=== PATIENT | male | born 1935 | race Caucasian/White ===

== ENCOUNTER 2018-11-27 19:54 | Inpatient (IN) ==
--- NOTE | 2018-11-27 19:56 | Emergency Department Note ---
Disposition Clinical Impression: Peripheral edema, Chest pressure, Hypertensive emergency Disposition: Admitted As Inpatient Condition: Fair Referrals: Brien Morel MD [Primary Care Provider] - Forms: ED Satisfaction Letter, Work/School Release Time of Disposition: 21:16 General Adult HPI - General Chief complaint: ED General Medical Stated complaint: high blood pressure Time Seen by Provider: 11/27/18 20:00 Source: patient, family Mode of arrival: wheelchair Limitations: physical limitation, age Nursing Notes Reviewed: Yes Vital Signs Reviewed: Yes - History of Present Illness HPI Narrative: 83-year-old male who presents emergency room visit increasing swelling and edema of legs was seen the other EDT patient though presents today with increasing swelling blurred vision was loss vision. He denies any diarrhea melena hematochezia hematemesis he has dyspnea with activity dyspnea with exertion patient states that he has chest pressure at times he states that he has had no fever no chills no cough patient states that he is unable to ambulate around the house he sleeps in the hospital bed so he does not have any orthopnea. Patient has any additional placed review systems Onset (ago): day(s) Location: lower extremity Pain Severity: mild Pain Scale: 3 Quality: aching Consistency: constant, Worsening Improves with: nothing Worsens with: other (legs dependant) Associated symptoms: Reports: shortness of breath, weakness. Denies: confusion, chest pain, cough, diaphoresis, fever/chills, headaches, loss of appetite, malaise, nausea/vomiting, rash, seizure, syncope Treatments Prior to Arrival: none - Related Data Home Medications Medication Instructions Recorded Confirmed Aspirin [Lo-Dose Aspirin EC] 81 mg PO DAILY 05/03/18 11/27/18 Benazepril HCl 20 mg PO DAILY 05/03/18 11/27/18 Ciclopirox Olamine [Ciclopirox] 1 appl TP BID 05/03/18 11/27/18 Diclofenac Sodium [Voltaren] 1 appl TD DAILY PRN 05/03/18 11/27/18 Fluocinonide 1 appl TP BID 05/03/18 11/27/18 Lovastatin 40 mg PO HS 05/03/18 11/27/18 Multivitamin [One Daily 1 tab PO DAILY 05/03/18 11/27/18 Multivitamin] Pantoprazole Sodium [Protonix] 40 mg PO DAILY 05/03/18 11/27/18 Sucralfate [Carafate] 1 gm PO QIDAC 05/03/18 11/27/18 Tamsulosin [Flomax] 0.4 mg PO DAILY 05/03/18 11/27/18 Allergies Allergy/AdvReac Type Severity Reaction Status Date / Time Penicillins [PCN] Allergy Hives Verified 05/03/18 16:44 Sulfa (Sulfonamide AdvReac Vomiting Verified 05/03/18 16:44 Antibiotics) All systems ED: reviewed and negative except as stated. Review of Systems: As Per HPI Constitutional: Reports: weakness. Denies: fever, chills Eyes: Denies: eye pain, eye discharge ENT ED: Denies: ear pain, dysphagia Cardiovascular: Reports: chest pain (pressre), dyspnea on exertion, edema. Denies: palpitations Respiratory: Denies: cough, dyspnea Gastrointestinal: Denies: abdominal pain, nausea, vomiting Genitourinary: Denies: urgency, dysuria Musculoskeletal: Reports: joint swelling. Denies: back pain, neck pain Integumentary: Denies: rash, abrasion Neurological: Denies: headache Psychiatric: Denies: anxiety, depression Endocrine: Denies: fatigue Hematological/Lymphatic: Denies: easy bleeding Allergic/Immunologic: Denies: facial swelling Past Medical History - Past Medical History Attestation: Yes The following information was validated with the patient. Source: patient, old records reviewed, nursing notes reviewed Medical history: Reports: arthritis, GERD, hyperlipidemia, hypertension, kidney stones, other Surgical history: Reports: cholecystectomy, herniorrhaphy, knee replacement Psychiatric history: Reports: no psych history - Social History Smoking Status: Former smoker Smokeless Tobacco Status: No Alcohol use: Reports: none Drug use: Reports: none Physical Exam - General Limitations: no limitations General appearance: alert, in no apparent distress - Head Head exam: atraumatic, normocephalic, normal inspection - Eye Eye exam: Present: normal appearance, PERRL, EOMI - ENT ENT exam: normal exam, normal oropharynx, mucous membranes moist - Expanded ENT Exam External ear exam: Present: normal external inspection Mouth exam: Present: normal external inspection Teeth exam: Present: normal inspection Throat exam: Present: normal inspection - Neck Neck exam: Present: normal inspection, full ROM, trachea midline - Chest Chest inspection: Present: normal inspection, symmetric chest wall rise - Respiratory Respiratory exam: Present: normal lung sounds bilaterally - Cardiovascular Cardiovascular exam: Present: regular rate, normal rhythm, normal heart sounds - Abdominal Exam Abdominal exam: Present: soft, Non-Tender. Absent: tenderness, distention, guarding, rebound, rigidity - Extremities Exam Extremities exam: Present: normal inspection, full ROM. Absent: tenderness, pedal edema - Expanded Upper Extremity Exam Shoulder exam: Present: normal inspection, full ROM Arm exam: Present: normal inspection, full ROM Elbow exam: Present: normal inspection, full ROM Forearm/Wrist exam: Present: normal inspection, full ROM Hand exam: Present: normal inspection, full ROM Vascular exam: Normal: capillary refill, radial pulse - Expanded Lower Extremity Exam Hip/Pelvis exam: Present: normal inspection, full ROM Upper leg exam: Present: normal inspection, full ROM 1 - selling 3+ Knee exam: Present: normal inspection, full ROM, swelling Lower leg exam: Present: normal inspection, full ROM, swelling Ankle exam: Present: normal inspection, full ROM, swelling Foot/toe exam: Present: normal inspection, full ROM, swelling Neurovascular/Tendon exam: Present: normal capillary refill, normal fine/light touch. Absent: motor deficit, sensory deficit, tendon deficit Gait: observed and normal - Back Exam Back exam: Present: normal inspection, full ROM. Absent: tenderness - Neurological Exam Neurological exam: Present: alert, oriented X3 - Expanded Neurological Exam Patient oriented to: Present: person, place, time Coma Scale Eye Opening: Spontaneous Coma Scale Motor Response: Obeys Commands Coma Scale Verbal Response: Oriented Coma Scale Total: 15 - Psychiatric Psychiatric exam: Present: normal affect, normal mood - Skin Skin exam: Present: warm, dry, intact, normal color Course Course Narrative: he was immediately seen and evaluated examinations performed patient was given an IV saline well and then was given 1 mg of Bumex and also given 0.2 mg Klonopin patient is a pressure patient pressure still changes patient was then given additional Bumex 1 mg as the edema with this being noted that he will be a dmitted for observation overnight patient was transferred to MedSurg stable currently asymptomatic other than the peripheral edema lower extremities complaints no chest pain or pressure at this time Vital Signs Temperature 97.4 F L 11/27/18 19:56 Pulse Rate 54 11/27/18 19:56 Respiratory Rate 16 11/27/18 19:56 Blood Pressure 217/94 11/27/18 19:56 O2 Sat by Pulse Oximetry 92 11/27/18 19:56 Temperature 97.4 F L 11/27/18 20:01 Pulse Rate 59 11/27/18 20:40 Respiratory Rate 18 11/27/18 20:40 Blood Pressure 219/88 11/27/18 20:40 O2 Sat by Pulse Oximetry 92 11/27/18 20:40 Oxygen Delivery Oxygen Delivery Room Air Medical Decision Making - Medical Records Medical records reviewed: Yes I reviewed the patient's medical records. - Lab Data Lab results reviewed: Yes I reviewed the patient's lab results. Result diagrams: 11/27/18 20:24 11/27/18 20:24 Lab Results 11/27/18 11/27/18 11/27/18 Range/Units 20:24 20:24 20:24 WBC 6.2 (4.3-11.1) K/mcL RBC 4.50 (4.19-5.50) M/mcL Hgb 14.8 (12.9-16.9) g/dL Hct 44.8 (37.5-50.1) % MCV 99.6 (83.0-100.0) fL MCH 32.9 (28.0-33.3) pg MCHC 33.0 (31.6-35.5) g/dL RDW 12.7 (11.5-14.5) % Plt Count 154 (140-400) K/mcL MPV 10.5 (9.4-12.4) fL Immature Gran % 0.3 (0-4) % Seg Neutrophils % 68.4 % Lymphocytes % 16.1 % Monocytes % 7.9 % Eosinophils % 6.8 % Basophils % 0.5 % Neutrophils # 4.3 (1.6-8.9) K/mcL Lymphocytes # 1.0 (0.6-4.6) K/mcL Monocytes # 0.5 (0.0-1.3) K/mcL Eosinophils # 0.4 (0.0-0.6) K/mcL Basophils # 0.0 (0.0-0.2) K/mcL PT 11.2 (9.4-12.1) Seconds INR 1.0 APTT 34.9 (26.0-36.0) Seconds Sodium 144 (136-145) mEq/L Potassium 3.6 (3.5-5.1) mEq/L Chloride 103 (98-107) mEq/L Carbon Dioxide 39 H (23-29) mEq/L BUN 13 (8-23) mg/dL Creatinine 1.20 (0.70-1.30) mg/dL Est GFR ( Amer) > 60 (> 60) Est GFR (Non-Af Amer) 58 L (> 60) BUN/Creatinine Ratio 11 (6-26) Glucose 122 H (70-105) mg/dL Calculated Osmolality 299 (280-300) Calcium 10.8 H (8.6-10.3) mg/dL Magnesium 1.1 L (1.6-2.6) mg/dL Total Bilirubin 0.7 (0.3-1.0) mg/dL AST 16 (13-39) Units/L ALT 15 (7-52) Units/L Alkaline Phosphatase 57 (34-104) Units/L Troponin I < 0.03 (< 0.04) ng/mL B-Natriuretic Peptide (Less than 100) pg/mL Serum Total Protein 6.7 (6.4-8.9) g/dL Albumin 3.5 (3.5-5.7) g/dL Globulin 3.2 (2.4-3.5) g/dL Albumin/Globulin Ratio 1.1 (1.1-2.2) 11/27/18 Range/Units 20:24 WBC (4.3-11.1) K/mcL RBC (4.19-5.50) M/mcL Hgb (12.9-16.9) g/dL Hct (37.5-50.1) % MCV (83.0-100.0) fL MCH (28.0-33.3) pg MCHC (31.6-35.5) g/dL RDW (11.5-14.5) % Plt Count (140-400) K/mcL MPV (9.4-12.4) fL Immature Gran % (0-4) % Seg Neutrophils % % Lymphocytes % % Monocytes % % Eosinophils % % Basophils % % Neutrophils # (1.6-8.9) K/mcL Lymphocytes # (0.6-4.6) K/mcL Monocytes # (0.0-1.3) K/mcL Eosinophils # (0.0-0.6) K/mcL Basophils # (0.0-0.2) K/mcL PT (9.4-12.1) Seconds INR APTT (26.0-36.0) Seconds Sodium (136-145) mEq/L Potassium (3.5-5.1) mEq/L Chloride (98-107) mEq/L Carbon Dioxide (23-29) mEq/L BUN (8-23) mg/dL Creatinine (0.70-1.30) mg/dL Est GFR ( Amer) (> 60) Est GFR (Non-Af Amer) (> 60) BUN/Creatinine Ratio (6-26) Glucose (70-105) mg/dL Calculated Osmolality (280-300) Calcium (8.6-10.3) mg/dL Magnesium (1.6-2.6) mg/dL Total Bilirubin (0.3-1.0) mg/dL AST (13-39) Units/L ALT (7-52) Units/L Alkaline Phosphatase (34-104) Units/L Troponin I (< 0.04) ng/mL B-Natriuretic Peptide 38 (Less than 100) pg/mL Serum Total Protein (6.4-8.9) g/dL Albumin (3.5-5.7) g/dL Globulin (2.4-3.5) g/dL Albumin/Globulin Ratio (1.1-2.2) - Radiology Data Radiology results reviewed: Yes I reviewed the patient's radiology results. ITS Impressions Chest X-Ray 11/27/18 20:13 IMPRESSION: No convincing evidence of edema or pneumonia. Rotated exam. D/ / 11/27/2018 20:40:37 Shayan Villa MD / [facility] Interpreting Provider: Shayan Villa MD - EKG Data EKG #1 EKG attestation: Yes I reviewed and interpreted this EKG. EKG results narrative: EKG shows sinus rhythm rate 59 HI 179 QRS 110 QT 431 and axis XXV no ST segment elevation ischemic or injury Critical Care Time Critical Care Time: Yes Total Critical Care Time: 45 Attestation: High probability of clinically significant life-threatening deterioration of this male individual as result of this significant hypertension and is having peripheral edema patient is also compounding the problem because he is bradycardic and is taking flecainide
[2018-11-27] MEDS ORDERED: cloNIDine HCl 0.1 MG TABLET PO STA (20:14)
[2018-11-27] MEDS ORDERED: Bumetanide 1 MG/4 ML VIAL IVP ONE (20:14)
[2018-11-27 20:31] LABS: Basophils % 0.5 %; Eosinophils # 0.4 K/mcL (0.0-0.6); Eosinophils % 6.8 %; Hematocrit 44.8 % (37.5-50.1); Hemoglobin 14.8 g/dL (12.9-16.9); Immature Granulocytes % 0.3 % (0-4); Lymphocytes % 16.1 %; Mean Corpuscular Hemoglobin 32.9 pg (28.0-33.3); Mean Corpuscular Volume 99.6 fL (83.0-100.0); Mean Platelet Volume 10.5 fL (9.4-12.4); Monocytes # 0.5 K/mcL (0.0-1.3); Monocytes % 7.9 %; Neutrophils # 4.3 K/mcL (1.6-8.9); Platelet Count 154 K/mcL (140-400); Red Cell Distribution Width 12.7 % (11.5-14.5); Segmented Neutrophils % 68.4 %; White Blood Count 6.2 K/mcL (4.3-11.1)
[2018-11-27 20:42] LABS: Prothrombin Time 11.2 Seconds (9.4-12.1)
[2018-11-27 20:44] LABS: Activated Partial Thrombo Time 34.9 Seconds (26.0-36.0)
[2018-11-27 20:49] LABS: Alanine Aminotransferase 15 Units/L (7-52); Albumin 3.5 g/dL (3.5-5.7); Albumin/Globulin Ratio 1.1 (1.1-2.2); Alkaline Phosphatase 57 Units/L (34-104); Aspartate Amino Transferase 16 Units/L (13-39); BUN/Creatinine Ratio 11 (6-26); Bilirubin,Total 0.7 mg/dL (0.3-1.0); Blood Urea Nitrogen 13 mg/dL (8-23); Calcium 10.8 mg/dL (8.6-10.3); Carbon Dioxide 39 mEq/L (23-29); Chloride 103 mEq/L (98-107); Globulin 3.2 g/dL (2.4-3.5); Glucose 122 mg/dL (70-105); Magnesium 1.1 mg/dL (1.6-2.6); Osmolality,Calculated 299 (280-300); Potassium 3.6 mEq/L (3.5-5.1); Sodium 144 mEq/L (136-145); Total Protein 6.7 g/dL (6.4-8.9); eGFR For African Americans > 60 (> 60); eGFR For Non-African Americans 58 (> 60)
[2018-11-27 20:53] LABS: Troponin I < 0.03 ng/mL (< 0.04)
[2018-11-27] MEDS ORDERED: Nitroglycerin 1 INCH/GM PACKET TP ONE ×2 (21:13→22:04)
[2018-11-27] MEDS ORDERED: Naloxone 0.4 MG/ML INJ IVP PRN (22:04)
[2018-11-27] MEDS ORDERED: DICLOFENAC SODIUM TP PRN (22:04)
[2018-11-27] MEDS: Sucralfate 1 GM TABLET PO SCH (22:47)
[2018-11-28] MEDS: Lisinopril 20 MG TABLET PO SCH (08:40)
[2018-11-28] MEDS: Multivit/Ca/Min/Fe/FA 1 TAB TABLET PO SCH (08:40)
[2018-11-28] MEDS: Aspirin Enteric Coated 81 MG Tablet PO SCH (08:40)
[2018-11-28] MEDS: Sucralfate 1 GM TABLET PO SCH ×4 (08:40→21:49)
[2018-11-28] MEDS: CICLOPIROX OLAMINE TP SCH ×2 (08:41→21:50)
[2018-11-28] MEDS: FluocinoLONE Acet 0.025% CRM 15 GM TUBE TP SCH ×2 (08:42→21:50)
[2018-11-28] MEDS: Acetaminophen 325 MG TABLET PO PRN ×2 (12:41→18:38)
[2018-11-28] MEDS: Bumetanide 1 MG/4 ML VIAL IVP SCH ×2 (13:29→18:39)
--- NOTE | 2018-11-28 14:20 | Internal Med History&Physical ---
Date of Encounter: 11/28/18 Time of Encounter: 12:10 Assessment and Plan (1) Hypomagnesemia Current visit: Yes Status: Acute Etiology not obvious. Magnesium sulfate will be given and labs rechecked in a.m. (2) CKD (chronic kidney disease) stage 3, GFR 30-59 ml/min Current visit: Yes Status: Chronic Patient was unaware he had chronic kidney disease stage 2-3 present since 2014. He is asymptomatic. (3) Hypertension Current visit: Yes Status: Chronic Continue ACEI. IV Bumex has been ordered. Blood pressure will be monitored. Qualifiers: Hypertension type: essential hypertension Qualified Code(s): I10 - Essential (primary) hypertension (4) BPH (benign prostatic hyperplasia) Current visit: Yes Status: Chronic Continue Flomax. Qualifiers: Lower urinary tract symptom presence: symptoms present Lower urinary tract symptom detail: urinary hesitancy Qualified Code(s): N40.1 - Benign prostatic hyperplasia with lower urinary tract symptoms; R39.11 - Hesitancy of micturition (5) Hypercalcemia Current visit: Yes Status: Chronic Present on all labs since April 2018. PTH will be ordered. (6) Elevated d-dimer Current visit: No Status: Acute Etiology not determined. Venous Doppler study of bilateral lower extremities 11/22/2018 showed no evidence of DVT. Continue to monitor. (7) Peripheral edema Current visit: Yes Status: Acute IV Lasix has been ordered. Internal Medicine - H&P: HPI Chief complaint: Edema, hypertension Admitted From: Emergency Dept Plans for Post Hospital Care: Home History of present illness: Mr. Mendoza is a 83 year old male who came to emergency room stating he had noticeable increase in edema of his lower legs, right more than left, and elevated blood pressure. He reports blood pressure was approximately 189/99 at home. He had no chest pain or mental status changes. He was evaluated in emergency room and admitted to [facility] floor for ongoing care needs. He was seen in emergency room November 21 for leg edema. D-dimer was found to be significantly elevated at 2031. Venous Doppler study the following day showed no evidence of DVT. He reports edema worsened over the past 1-2 days as per above. He denies history of heart failure or past DVT. He has had no change in medication or activity. Cardiovascular history is significant for hypertension but no known AK or pulmonary embolus. Past Med Surg Social Fam HX - Past Medical History Medical history: arthritis, GERD, hyperlipidemia, hypertension, kidney stones, other Additional medical history: OA Psychiatric history: no psych history - Past Surgical History Surgical History: cholecystectomy Additional surgical history: esophagus stretched. kidney stone surgery. Hernia repair - Social History Smoking Status: Former smoker Smokeless Tobacco Status: No Alcohol use: none Drug use: none - Family History Mother Living Status: Hx Family Endocrine Disorder: Yes Father Living Status: Internal Medicine - H&P: Meds Aspirin [Lo-Dose Aspirin EC] 81 mg PO DAILY 05/03/18 [History] Benazepril HCl 20 mg PO DAILY 05/03/18 [History] Ciclopirox Olamine [Ciclopirox] 1 appl TP BID 05/03/18 [History] Diclofenac Sodium [Voltaren] 1 appl TD DAILY PRN 05/03/18 [History] Fluocinonide 1 appl TP BID 05/03/18 [History] Lovastatin 40 mg PO HS 05/03/18 [History] Multivitamin [One Daily Multivitamin] 1 tab PO DAILY 05/03/18 [History] Pantoprazole Sodium [Protonix] 40 mg PO DAILY 05/03/18 [History] Sucralfate [Carafate] 1 gm PO QIDAC 05/03/18 [History] Tamsulosin [Flomax] 0.4 mg PO DAILY 05/03/18 [History] Allergy/AdvReac Type Severity Reaction Status Date / Time Penicillins [PCN] Allergy Hives Verified 05/03/18 16:44 Sulfa (Sulfonamide AdvReac Vomiting Verified 05/03/18 16:44 Antibiotics) All Systems PM: A 10-system review of systems was performed and is negative for pertinent findings except as documented above in the HPI. Review of systems: Gen.: Weight has increased from 98.8 kg 05/04/2018 to 101.3 kg on admission now. Cardiovascular: As per history of present illness Respiratory: He smoked from approximately age [age]. He denies chronic lung disease and does not use home oxygen. He denies CHAYO testing. GI: He has had cholecystectomy. He denies disorders of his liver or exocrine pancreas. He reports surgery for hiatal hernia in the past. : He has had multiple kidney stones in the past. He has BPH. He denies other kidney bladder prostate disorders. Neurologic: He denies large distribution strokes or seizures. Endocrine: He reports borderline diabetes. He has hyperlipidemia but denies thyroid disease. Hematology/oncology: He denies blood disorders cancers or anemia Psychiatric: He denies anxiety depression or other mental health issues [place] skeletal: He has DJD. He is uncertain if he has history of gout. - Constitutional Vitals: Temp Pulse Resp BP Pulse Ox 97.5 F L 54 16 154/75 92 11/28/18 11:26 11/28/18 11:26 11/28/18 11:26 11/28/18 11:11/28/18 11:26 Exam: Gen.: He is a well-developed well-nourished male sitting on the side of bed who appears in no acute distress HEENT: Head is atraumatic and normocephalic. Eyes: EOMI. There is no scleral icterus. Mouth: Mucosa is moist. Neck: Supple and nontender. There is no thyromegaly or adenopathy noted. Heart: Regular without murmurs gallops or ectopics. Lungs: No wheezes or crackles are heard. Abdomen: Soft and nontender. No masses or guarding are noted. Extremities: He has 2+ edema of the lower legs and dorsum of the feet bilaterally. Dorsalis pedis and posterior tibial pulses are not palpable. There is no cyanosis or clubbing noted. Neurologic: Mental status: He is talkative and a good historian. Cranial nerves: Smile is symmetric. Forehead wrinkles bilaterally. Tongue protrudes midline. EOMI. Motor: There is no pronator drift. Cerebellar: Finger to nose is intact bilaterally. Skin: Warm and dry Internal Med - H&P Results - Labs CBC & Chem 7: 11/27/18 20:24 11/27/18 20:24 Labs: Short CBC 11/27/18 Range/Units 20:24 WBC 6.2 (4.3-11.1) K/mcL Hgb 14.8 (12.9-16.9) g/dL Hct 44.8 (37.5-50.1) % Plt Count 154 (140-400) K/mcL Neutrophils # 4.3 (1.6-8.9) K/mcL BMP 11/27/18 20:24 Sodium 144 Potassium 3.6 Chloride 103 Carbon Dioxide 39 H BUN 13 Creatinine 1.20 Glucose 122 H Calcium 10.8 H Cardiac Enzymes 11/27/18 Range/Units 20:24 Troponin I < 0.03 (< 0.04) ng/mL Liver Function 11/27/18 Range/Units 20:24 Total Bilirubin 0.7 (0.3-1.0) mg/dL AST 16 (13-39) Units/L ALT 15 (7-52) Units/L Alkaline Phosphatase 57 (34-104) Units/L Albumin 3.5 (3.5-5.7) g/dL - Impressions ITS Impressions Chest X-Ray 11/27/18 20:13 IMPRESSION: No convincing evidence of edema or pneumonia. Rotated exam. D/ / 11/27/2018 20:40:37 Shayan Villa MD / [facility] Interpreting Provider: Shayan Villa MD
[2018-11-29 06:20] LABS: BUN/Creatinine Ratio 14 (6-26); Blood Urea Nitrogen 16 mg/dL (8-23); Calcium 9.9 mg/dL (8.6-10.3); Carbon Dioxide 38 mEq/L (23-29); Chloride 100 mEq/L (98-107); Glucose 119 mg/dL (70-105); Magnesium 1.4 mg/dL (1.6-2.6); Osmolality,Calculated 298 (280-300); Potassium 3.2 mEq/L (3.5-5.1); Sodium 143 mEq/L (136-145); eGFR For African Americans > 60 (> 60); eGFR For Non-African Americans > 60 (> 60)
[2018-11-29] MEDS: Lisinopril 20 MG TABLET PO SCH (08:32)
[2018-11-29] MEDS: Aspirin Enteric Coated 81 MG Tablet PO SCH (08:32)
[2018-11-29] MEDS: Multivit/Ca/Min/Fe/FA 1 TAB TABLET PO SCH (08:35)
[2018-11-29] MEDS: Bumetanide 1 MG/4 ML VIAL IVP SCH (08:35)
[2018-11-29] MEDS: CICLOPIROX OLAMINE TP SCH ×2 (08:35→21:02)
[2018-11-29] MEDS: Sucralfate 1 GM TABLET PO SCH ×4 (08:35→21:02)
[2018-11-29] MEDS: FluocinoLONE Acet 0.025% CRM 15 GM TUBE TP SCH ×2 (08:39→21:02)
--- NOTE | 2018-11-29 10:22 | Electrocardiograph Report ---
[place] [id number] Test Date: 2018-11-27 Pat Name: Jose Mendoza Department: EDP-12 Room: [facility] Gender: M Volunteer Specialist: : [id number] Requested By: Kianna Torre Order Number: [id number] Reading MD: Bruno Kim Measurements Intervals [place] Rate: 59 P: 121 MO: 179 QRS: 25 QRSD: 110 T: 158 QT: 431 QTc: 420 Interpretive Statements Sinus rhythm Atrial premature complex Technically poor tracing - please repeat ECG Electronically Signed On 11-29-2018 10:20:53 EDT by Bruno Kim
--- NOTE | 2018-11-29 15:03 | Internal Med Progress Note ---
Date of Encounter: 11/29/18 Time of Encounter: 12:45 - Assessment and plan (1) Hypomagnesemia Current Visit: Yes Status: Acute Assessment and plan: November 29. Magnesium level improved but still low. Additional magnesium sulfate will be given IV. (2) CKD (chronic kidney disease) stage 3, GFR 30-59 ml/min Current Visit: Yes Status: Chronic Assessment and plan: November 29. Monitor renal indices (3) Hypertension Current Visit: Yes Status: Chronic Assessment and plan: November 29. Continue ACEI and IV Bumex Qualifiers: Hypertension type: essential hypertension Qualified Code(s): I10 - Essential (primary) hypertension (4) BPH (benign prostatic hyperplasia) Current Visit: Yes Status: Chronic Assessment and plan: November 29. Continue flomax Qualifiers: Lower urinary tract symptom presence: symptoms present Lower urinary tract symptom detail: urinary hesitancy Qualified Code(s): N40.1 - Benign prostatic hyperplasia with lower urinary tract symptoms; R39.11 - Hesitancy of micturition (5) Hypercalcemia Current Visit: Yes Status: Chronic Assessment and plan: November 29. PTH has been ordered. (6) Elevated d-dimer Current Visit: No Status: Chronic Assessment and plan: November 29. Etiology not determined. Venous Doppler study of bilateral lower extremities 11/22/2018 showed no evidence of DVT. Continue to monitor. (7) Peripheral edema Current Visit: Yes Status: Acute Assessment and plan: November 29. Continue IV Bumex. - Subjective Interval history: November 29. He has no new complaints - Constitutional Vitals: Temp Pulse Resp BP Pulse Ox 97.6 F 58 16 87/50 96 11/29/18 11:10 11/29/18 11:10 11/29/18 11:10 11/29/18 11:10 11/29/18 11:10 Exam: he is resting comfortably in a chair at bedside and appears in no acute distress. His affect is bright and cheerful. Extremities show decreased pitting edema. I reviewed his medications and lab results. Internal Medicine: Result - Labs CBC & Chem 7: 11/27/18 20:24 11/29/18 05:31 Labs: BMP 11/29/18 05:31 Sodium 143 Potassium 3.2 L Chloride 100 Carbon Dioxide 38 H BUN 16 Creatinine 1.14 Glucose 119 H Calcium 9.9 - ABG Interpretation ABG results: PT/INR, D-dimer PT 11.2 Seconds (9.4-12.1) 11/27/18 20:24 Consult Discharge Plan - Plan Referrals: Brien Morel MD [Primary Care Provider] - 1 week
[2018-11-30] MEDS: Bumetanide 1 MG/4 ML VIAL IVP SCH (08:39)
[2018-11-30] MEDS: Sucralfate 1 GM TABLET PO SCH ×4 (08:40→20:14)
[2018-11-30] MEDS: Aspirin Enteric Coated 81 MG Tablet PO SCH (08:40)
[2018-11-30] MEDS: Multivit/Ca/Min/Fe/FA 1 TAB TABLET PO SCH (08:40)
[2018-11-30] MEDS: Lisinopril 20 MG TABLET PO SCH (08:40)
[2018-11-30] MEDS: CICLOPIROX OLAMINE TP SCH ×2 (08:41→20:14)
[2018-11-30] MEDS: Acetaminophen 325 MG TABLET PO PRN ×2 (08:44→20:13)
[2018-11-30] MEDS: FluocinoLONE Acet 0.025% CRM 15 GM TUBE TP SCH ×2 (08:44→20:14)
--- NOTE | 2018-11-30 10:08 | Internal Med Progress Note ---
Date of Encounter: 11/30/18 Time of Encounter: 10:01 - Assessment and plan (1) Hypomagnesemia Current Visit: Yes Status: Acute Assessment and plan: November 29. Magnesium level improved but still low. Additional magnesium sulfate will be given IV. November 30. Recheck labs in a.m. (2) CKD (chronic kidney disease) stage 3, GFR 30-59 ml/min Current Visit: Yes Status: Chronic Assessment and plan: November 29. Monitor renal indices November 30. Recheck labs in a.m. (3) Hypertension Current Visit: Yes Status: Chronic Assessment and plan: November 29. Continue ACEI and IV Bumex Qualifiers: Hypertension type: essential hypertension Qualified Code(s): I10 - Essential (primary) hypertension (4) BPH (benign prostatic hyperplasia) Current Visit: Yes Status: Chronic Assessment and plan: November 29. Continue flomax Qualifiers: Lower urinary tract symptom presence: symptoms present Lower urinary tract symptom detail: urinary hesitancy Qualified Code(s): N40.1 - Benign prostatic hyperplasia with lower urinary tract symptoms; R39.11 - Hesitancy of micturition (5) Hypercalcemia Current Visit: Yes Status: Chronic Assessment and plan: November 29. PTH has been ordered. (6) Elevated d-dimer Current Visit: No Status: Chronic Assessment and plan: November 29. Etiology not determined. Venous Doppler study of bilateral lower extremities 11/22/2018 showed no evidence of DVT. Continue to monitor. (7) Peripheral edema Current Visit: Yes Status: Acute Assessment and plan: November 29. Continue IV Bumex. November 30. Improved. Continue IV Bumex. - Subjective Interval history: November 29. He has no new complaints November 30. He has no new complaints. - Constitutional Vitals: Temp Pulse Resp BP Pulse Ox 98.2 F 61 16 136/62 97 11/30/18 07:24 11/30/18 07:24 11/30/18 07:24 11/30/18 07:24 11/30/18 07:24 Exam: He is resting comfortably in bed and appears in no acute distress. His affect is overall cheerful. Her without murmurs gallops or ectopics. Lungs are clear anteriorly. Extremities show no pitting edema. I reviewed his medications and lab results. Internal Medicine: Result - Labs CBC & Chem 7: 11/27/18 20:24 11/29/18 05:31 - ABG Interpretation ABG results: PT/INR, D-dimer PT 11.2 Seconds (9.4-12.1) 11/27/18 20:24 Consult Discharge Plan - Plan Referrals: Brien Morel MD [Primary Care Provider] - 1 week
[2018-12-01] MEDS: Lisinopril 20 MG TABLET PO SCH (04:29)
[2018-12-01] MEDS: Bumetanide 1 MG/4 ML VIAL IVP SCH (06:21)
[2018-12-01 07:34] LABS: Basophils % 0.4 %; Eosinophils # 0.4 K/mcL (0.0-0.6); Eosinophils % 4.7 %; Hematocrit 45.3 % (37.5-50.1); Hemoglobin 14.6 g/dL (12.9-16.9); Immature Granulocytes % 0.4 % (0-4); Lymphocytes # 0.9 K/mcL (0.6-4.6); Lymphocytes % 11.2 %; Mean Corpuscular HGB Conc 32.2 g/dL (31.6-35.5); Mean Corpuscular Hemoglobin 33.4 pg (28.0-33.3); Mean Corpuscular Volume 103.7 fL (83.0-100.0); Mean Platelet Volume 10.9 fL (9.4-12.4); Monocytes # 0.7 K/mcL (0.0-1.3); Monocytes % 8.4 %; Neutrophils # 6.1 K/mcL (1.6-8.9); Platelet Count 157 K/mcL (140-400); Red Blood Count 4.37 M/mcL (4.19-5.50); Red Cell Distribution Width 12.3 % (11.5-14.5); Segmented Neutrophils % 74.9 %; White Blood Count 8.1 K/mcL (4.3-11.1)
[2018-12-01 07:58] LABS: BUN/Creatinine Ratio 13 (6-26); Blood Urea Nitrogen 17 mg/dL (8-23); Calcium 9.6 mg/dL (8.6-10.3); Carbon Dioxide 40 mEq/L (23-29); Chloride 97 mEq/L (98-107); Glucose 113 mg/dL (70-105); Magnesium 1.4 mg/dL (1.6-2.6); Osmolality,Calculated 294 (280-300); Potassium 3.7 mEq/L (3.5-5.1); Sodium 141 mEq/L (136-145); eGFR For African Americans > 60 (> 60); eGFR For Non-African Americans 51 (> 60)
[2018-12-01] MEDS: Multivit/Ca/Min/Fe/FA 1 TAB TABLET PO SCH (08:11)
[2018-12-01] MEDS: Aspirin Enteric Coated 81 MG Tablet PO SCH (08:11)
[2018-12-01] MEDS: Sucralfate 1 GM TABLET PO SCH ×4 (08:11→20:07)
[2018-12-01] MEDS: CICLOPIROX OLAMINE TP SCH ×2 (08:13→20:07)
--- NOTE | 2018-12-01 11:42 | Internal Med Progress Note ---
Date of Encounter: 12/01/18 Time of Encounter: 11:33 - Assessment and plan (1) Hypomagnesemia Current Visit: Yes Status: Acute Assessment and plan: November 29. Magnesium level improved but still low. Additional magnesium sulfate will be given IV. November 30. Recheck labs in a.m. December 01. Magnesium level unchanged at 1.4. Continue magnesium oxide. (2) CKD (chronic kidney disease) stage 3, GFR 30-59 ml/min Current Visit: Yes Status: Chronic Assessment and plan: November 29. Monitor renal indices November 30. Recheck labs in a.m. (3) Hypertension Current Visit: Yes Status: Chronic Assessment and plan: November 29. Continue ACEI and IV Bumex December 01. Blood pressures show significant fluctuation. Continue present Rx. Qualifiers: Hypertension type: essential hypertension Qualified Code(s): I10 - Essential (primary) hypertension (4) BPH (benign prostatic hyperplasia) Current Visit: Yes Status: Chronic Assessment and plan: November 29. Continue flomax Qualifiers: Lower urinary tract symptom presence: symptoms present Lower urinary tract symptom detail: urinary hesitancy Qualified Code(s): N40.1 - Benign prostatic hyperplasia with lower urinary tract symptoms; R39.11 - Hesitancy of micturition (5) Hypercalcemia Current Visit: Yes Status: Chronic Assessment and plan: November 29. PTH has been ordered. December 01. PTH elevated 186.9. Suspect secondary hyperparathyroidism from kasi l failure. Phosphorus level will be ordered. (6) Elevated d-dimer Current Visit: No Status: Chronic Assessment and plan: November 29. Etiology not determined. Venous Doppler study of bilateral lower extremities 11/22/2018 showed no evidence of DVT. Continue to monitor. (7) Peripheral edema Current Visit: Yes Status: Acute Assessment and plan: November 29. Continue IV Bumex. November 30. Improved. Continue IV Bumex. - Subjective Interval history: November 29. He has no new complaints November 30. He has no new complaints. December 01. He has no new complaints - Constitutional Vitals: Temp Pulse Resp BP Pulse Ox 99.0 F 67 18 114/82 99 12/01/18 07:14 12/01/18 07:14 12/01/18 07:14 12/01/18 07:14 12/01/18 07:14 Exam: He is resting comfortably in bed and appears in no acute distress. His affect is bright and cheerful. Extremities show trace pitting edema bilaterally. I reviewed his medications and lab results. Internal Medicine: Result - Labs CBC & Chem 7: 12/01/18 07:10 12/01/18 07:10 Labs: Short CBC 12/01/18 Range/Units 07:10 WBC 8.1 (4.3-11.1) K/mcL Hgb 14.6 (12.9-16.9) g/dL Hct 45.3 (37.5-50.1) % Plt Count 157 (140-400) K/mcL Neutrophils # 6.1 (1.6-8.9) K/mcL BMP 12/01/18 07:10 Sodium 141 Potassium 3.7 Chloride 97 L Carbon Dioxide 40 H* BUN 17 Creatinine 1.34 H Glucose 113 H Calcium 9.6 - ABG Interpretation ABG results: PT/INR, D-dimer PT 11.2 Seconds (9.4-12.1) 11/27/18 20:24 Consult Discharge Plan - Plan Referrals: Brien Morel MD [Primary Care Provider] - 1 week
[2018-12-01] MEDS: FluocinoLONE Acet 0.025% CRM 15 GM TUBE TP SCH ×2 (11:48→20:07)
[2018-12-01] MEDS: Magnesium Oxide 400 MG TABLET PO SCH ×2 (13:29→20:07)
[2018-12-01] MEDS: Acetaminophen 325 MG TABLET PO PRN (20:07)
[2018-12-02] MEDS: Aspirin Enteric Coated 81 MG Tablet PO SCH (08:24)
[2018-12-02] MEDS: Sucralfate 1 GM TABLET PO SCH ×3 (08:24→16:44)
[2018-12-02] MEDS: Bumetanide 1 MG/4 ML VIAL IVP SCH (08:24)
[2018-12-02] MEDS: Magnesium Oxide 400 MG TABLET PO SCH (08:24)
[2018-12-02] MEDS: Multivit/Ca/Min/Fe/FA 1 TAB TABLET PO SCH (08:24)
[2018-12-02] MEDS: CICLOPIROX OLAMINE TP SCH (08:24)
[2018-12-02] MEDS: Lisinopril 20 MG TABLET PO SCH (08:24)
[2018-12-02] MEDS: FluocinoLONE Acet 0.025% CRM 15 GM TUBE TP SCH (08:28)
[2018-12-02 11:50] VITALS: BP 136/73
--- NOTE | 2018-12-02 11:59 | Discharge Summary ---
Date of Encounter: 12/02/18 Time of Encounter: 11:50 - Discharge Diagnosis (1) Hypomagnesemia Priority: Primary Status: Acute (2) CKD (chronic kidney disease) stage 3, GFR 30-59 ml/min Priority: Secondary Status: Chronic (3) Hypertension Priority: Secondary Status: Chronic Qualifiers: Hypertension type: essential hypertension Qualified Code(s): I10 - Essential (primary) hypertension (4) BPH (benign prostatic hyperplasia) Priority: Secondary Status: Chronic Qualifiers: Lower urinary tract symptom presence: symptoms present Lower urinary tract symptom detail: urinary hesitancy Qualified Code(s): N40.1 - Benign prostatic hyperplasia with lower urinary tract symptoms; R39.11 - Hesitancy of micturition (5) Hypercalcemia Priority: Secondary Status: Chronic (6) Elevated d-dimer Priority: Secondary Status: Chronic (7) Peripheral edema Priority: Secondary Status: Acute (8) Hypophosphatemia Priority: Secondary Status: Acute Hospital course: Mr. Mendoza is a 83 year old male who came to emergency room stating he had noticeable increase in edema of his lower legs, right more than left, and elevated blood pressure. He reports blood pressure was approximately 189/99 at home. He had no chest pain or mental status changes. He was evaluated in emergency room and admitted to [facility] floor for ongoing care needs. Initial orders were written by the emergency room physician. I saw him on November 28 and performed a history and physical. The etiology of hypomagnesemia was not determined. He was given magnesium replacement and magnesium level was stable at 1.4 on December 01. He will continue oral magnesium oxide in swing bed and labs will be monitored. IV Bumex was given and he had significant diuresis with with decreased edema of his legs. This will be continued in swing bed. Creatinine had risen slightly to 1.34 with estimated GFR 51 on December 01. Renal indices will be monitored in swing bed. Calcium level decreased to 9.6 in December 01. PTH returned elevated at 186.9. Phosphorus level returned low at 1.6 on December 01. I suspect he has primary hyperparathyroidism. He was started on Neutra-Phos and this will be continued in swing bed. He had physical therapy and occupational therapy evaluation with ongoing intervention. It was felt he would benefit from additional therapy in swing bed. On December 02 arrangements were complete for him to be discharged to swing bed. - Time Spent with Patient Total time spent providing and/or coordinating discharge services: - Discharge Medications Prescriptions: New Acetaminophen [Tylenol] 650 mg PO Q6HR PRN tablet PRN Reason: Pain Bumetanide [Bumex] 1 mg IVP DAILY vial Patient Taking Own Medication 1 each TP BID each Patient Taking Own Medication 1 each TP DAILY PRN each PRN Reason: Mild To Moderate Pain Magnesium Oxide [Mag-Ox] 400 mg PO BID tablet Phos-NaK [Neutra-Phos] 1 each PO BID powd.pack Potassium Chloride 20 meq PO BID tab.er.prt Continued Aspirin [Lo-Dose Aspirin EC] 81 mg PO DAILY Benazepril HCl 20 mg PO DAILY Ciclopirox Olamine [Ciclopirox] 1 appl TP BID Diclofenac Sodium [Voltaren] 1 appl TD DAILY PRN PRN Reason: Mild To Moderate Pain Fluocinonide 1 appl TP BID Lovastatin 40 mg PO HS Multivitamin [One Daily Multivitamin] 1 tab PO DAILY Pantoprazole Sodium [Protonix] 40 mg PO DAILY Sucralfate [Carafate] 1 gm PO QIDAC Tamsulosin [Flomax] 0.4 mg PO DAILY Home Medications: Aspirin [Lo-Dose Aspirin EC] 81 mg PO DAILY 05/03/18 [History] Benazepril HCl 20 mg PO DAILY 05/03/18 [History] Ciclopirox Olamine [Ciclopirox] 1 appl TP BID 05/03/18 [History] Diclofenac Sodium [Voltaren] 1 appl TD DAILY PRN 05/03/18 [History] Fluocinonide 1 appl TP BID 05/03/18 [History] Lovastatin 40 mg PO HS 05/03/18 [History] Multivitamin [One Daily Multivitamin] 1 tab PO DAILY 05/03/18 [History] Pantoprazole Sodium [Protonix] 40 mg PO DAILY 05/03/18 [History] Sucralfate [Carafate] 1 gm PO QIDAC 05/03/18 [History] Tamsulosin [Flomax] 0.4 mg PO DAILY 05/03/18 [History] Acetaminophen [Tylenol] 650 mg PO Q6HR PRN tablet 12/02/18 [Rx] Bumetanide [Bumex] 1 mg IVP DAILY vial 12/02/18 [Rx] Magnesium Oxide [Mag-Ox] 400 mg PO BID tablet 12/02/18 [Rx] Patient Taking Own Medication 1 each TP BID each 12/02/18 [Rx] Patient Taking Own Medication 1 each TP DAILY PRN each 12/02/18 [Rx] Phos-NaK [Neutra-Phos] 1 each PO BID powd.pack 12/02/18 [Rx] Potassium Chloride 20 meq PO BID tab.er.prt 12/02/18 [Rx] Allergies/Adverse Reactions: Allergy/AdvReac Type Severity Reaction Status Date / Time Penicillins [PCN] Allergy Hives Verified 05/03/18 16:44 Sulfa (Sulfonamide AdvReac Vomiting Verified 05/03/18 16:44 Antibiotics) Date of admission: 11/29/18 13:03 Primary care physician: Brien Morel MD Consults: 11/27/18 22:18 Consult to Manager Recruiting [CONS] Routine Reason for SW Consult: Patient would like information about medical power of state attorney 11/28/18 12:54 Consult to Occupational Therapy [CONS] Routine Comment: Evaluate, develop and implement POC Reason for Consult: weakness Does patient have active BEDREST order?: No Is patient medically & hemodynamically stable?: Yes Patient assessed for mobility or mobilized this visit?: Yes Consult to Physical Therapy [CONS] Routine Comment: Evaluate, develop and implement POC Reason for Consult: weakness Does patient have active BEDREST order?: No Is patient medically & hemodynamically stable?: Yes Patient assessed for mobility or mobilized this visit?: Yes - Constitutional Vitals: Temp Pulse Resp BP Pulse Ox 99.1 F 73 18 136/73 97 12/02/18 11:00 12/02/18 11:00 12/02/18 11:00 12/02/18 11:00 12/02/18 11:00 - Patient Status Disposition: Transfer Hospital Swing Bed Condition: Fair - Discharge Instructions - Diet and Activity Activity: as per physical therapy Diet: low fat, low cholesterol, low salt diet
== END 2018-12-02 17:34 | disposition other institution (70) | DRG 684 ==
LOC: EMEROOPIK 19:54 → INPPIK 19:54
PROVIDERS: ADMIT Internal Medicine; ATTEND Internal Medicine

== ENCOUNTER 2018-12-02 17:55 | Inpatient (IN) ==
[2018-12-02] MEDS ORDERED: VOLTAREN GEL TP PRN (19:01)
[2018-12-02] MEDS: Sucralfate 1 GM TABLET PO SCH (21:25)
[2018-12-02] MEDS: Magnesium Oxide 400 MG TABLET PO SCH (21:26)
[2018-12-02] MEDS: Triamcinolone Acet 0.1% CRM 15 GM TUBE TP SCH (21:26)
[2018-12-03] MEDS: Aspirin Enteric Coated 81 MG Tablet PO SCH (08:46)
[2018-12-03] MEDS: Bumetanide 1 MG/4 ML VIAL IVP SCH ×2 (08:46→09:00)
[2018-12-03] MEDS: Magnesium Oxide 400 MG TABLET PO SCH ×2 (08:46→20:40)
[2018-12-03] MEDS: Lisinopril 20 MG TABLET PO SCH (08:46)
[2018-12-03] MEDS: Triamcinolone Acet 0.1% CRM 15 GM TUBE TP SCH ×2 (08:47→20:41)
[2018-12-03] MEDS: Sucralfate 1 GM TABLET PO SCH ×4 (08:47→20:40)
[2018-12-03] MEDS: Multivit/Ca/Min/Fe/FA 1 TAB TABLET PO SCH (08:47)
--- NOTE | 2018-12-03 12:20 | Internal Med Progress Note ---
Date of Encounter: 12/03/18 Time of Encounter: 12:12 - Assessment and plan (1) Peripheral edema Current Visit: No Status: Acute Assessment and plan: December 03. Bumex will be changed to 1 mg p.o. daily. (2) CKD (chronic kidney disease) stage 3, GFR 30-59 ml/min Current Visit: No Status: Chronic Assessment and plan: December 03. Monitor renal indices. (3) Hypomagnesemia Current Visit: No Status: Acute Assessment and plan: December 03. Continue magnesium oxide and monitor labs. (4) Hypertension Current Visit: No Status: Chronic Assessment and plan: December 03. Blood pressure stable. Continue lisinopril and Bumex. Qualifiers: Hypertension type: essential hypertension Qualified Code(s): I10 - Essential (primary) hypertension (5) Hypercalcemia Current Visit: No Status: Chronic Assessment and plan: December 03. Likely primary hyperparathyroidism. Monitor calcium level. (6) Hypophosphatemia Current Visit: No Status: Acute Assessment and plan: December 03. Continue Neutra-Phos and monitor labs. (7) Weakness Current Visit: Yes Status: Acute Assessment and plan: December 03. Continue PT/OT intervention. (8) BPH (benign prostatic hyperplasia) Current Visit: No Status: Chronic Assessment and plan: December 03. Continue Flomax. Qualifiers: Lower urinary tract symptom presence: symptoms present Lower urinary tract symptom detail: urinary hesitancy Qualified Code(s): N40.1 - Benign prostatic hyperplasia with lower urinary tract symptoms; R39.11 - Hesitancy of micturition - Subjective Interval history: December 03. He was hospitalized [facility] acute-care November 27 after presenting with worsened edema and elevated blood pressure. He was started on IV Bumex with good diuresis and decreased edema. Blood pressure improved with medication adjustment. Hypercalcemia workup showed probable primary hyperparathyroidism. PT and OT evaluations were done and it was felt he would benefit from additional therapy in swing bed. He has no new complaints today. - Constitutional Vitals: Temp Pulse Resp BP Pulse Ox 98.4 F 70 18 146/69 90 12/03/18 06:24 12/03/18 06:24 12/03/18 06:24 12/03/18 06:24 12/03/18 06:24 Exam: He is resting comfortably in bed and appears in no acute distress. Lungs are clear. Heart is regular with a 2-3/6 systolic murmur heard at the left sternal border. Extremities show trace pitting edema of his lower legs and 1+ edema of the dorsum of the feet bilaterally. I reviewed his medications and lab results. Consult Discharge Plan - Plan Referrals: Brien Morel MD [Primary Care Provider] - 1 week
[2018-12-03 12:54] LABS: Basophils % 0.4 %; Eosinophils # 0.4 K/mcL (0.0-0.6); Hematocrit 40.6 % (37.5-50.1); Hemoglobin 13.4 g/dL (12.9-16.9); Immature Granulocytes % 0.3 % (0-4); Lymphocytes # 0.9 K/mcL (0.6-4.6); Lymphocytes % 11.9 %; Mean Corpuscular Hemoglobin 33.8 pg (28.0-33.3); Mean Corpuscular Volume 102.3 fL (83.0-100.0); Monocytes # 0.7 K/mcL (0.0-1.3); Neutrophils # 5.2 K/mcL (1.6-8.9); Platelet Count 164 K/mcL (140-400); Red Blood Count 3.97 M/mcL (4.19-5.50); Segmented Neutrophils % 71.4 %; White Blood Count 7.2 K/mcL (4.3-11.1)
[2018-12-03] MEDS: Acetaminophen 325 MG TABLET PO PRN (13:30)
[2018-12-03 13:34] LABS: BUN/Creatinine Ratio 16 (6-26); Blood Urea Nitrogen 16 mg/dL (8-23); Calcium 9.5 mg/dL (8.6-10.3); Carbon Dioxide 41 mEq/L (23-29); Chloride 98 mEq/L (98-107); Glucose 133 mg/dL (70-105); Magnesium 1.3 mg/dL (1.6-2.6); Osmolality,Calculated 289 (280-300); Phosphorous 1.6 mg/dL (2.7-4.5); Potassium 4.3 mEq/L (3.5-5.1); Sodium 138 mEq/L (136-145); eGFR For African Americans > 60 (> 60); eGFR For Non-African Americans > 60 (> 60)
[2018-12-04] MEDS: Magnesium Oxide 400 MG TABLET PO SCH ×2 (08:01→21:07)
[2018-12-04] MEDS: Acetaminophen 325 MG TABLET PO PRN ×2 (08:01→13:59)
[2018-12-04] MEDS: Lisinopril 20 MG TABLET PO SCH (08:02)
[2018-12-04] MEDS: Aspirin Enteric Coated 81 MG Tablet PO SCH (08:02)
[2018-12-04] MEDS: Multivit/Ca/Min/Fe/FA 1 TAB TABLET PO SCH (08:02)
[2018-12-04] MEDS: Sucralfate 1 GM TABLET PO SCH ×4 (08:02→21:07)
[2018-12-04] MEDS: Bumetanide 1 MG/4 ML VIAL IVP SCH (08:02)
[2018-12-04] MEDS: Triamcinolone Acet 0.1% CRM 15 GM TUBE TP SCH ×2 (08:03→21:22)
[2018-12-04] MEDS: Bumetanide 1 MG TABLET PO SCH (16:30)
[2018-12-05 05:30] LABS: Basophils % 0.7 %; Eosinophils # 0.5 K/mcL (0.0-0.6); Eosinophils % 7.6 %; Hematocrit 42.1 % (37.5-50.1); Hemoglobin 13.6 g/dL (12.9-16.9); Immature Granulocytes % 0.3 % (0-4); Lymphocytes # 0.8 K/mcL (0.6-4.6); Lymphocytes % 12.6 %; Mean Corpuscular HGB Conc 32.3 g/dL (31.6-35.5); Mean Corpuscular Hemoglobin 33.7 pg (28.0-33.3); Mean Corpuscular Volume 104.2 fL (83.0-100.0); Mean Platelet Volume 11.3 fL (9.4-12.4); Monocytes # 0.6 K/mcL (0.0-1.3); Monocytes % 9.8 %; Neutrophils # 4.2 K/mcL (1.6-8.9); Platelet Count 184 K/mcL (140-400); Red Blood Count 4.04 M/mcL (4.19-5.50); Red Cell Distribution Width 12.1 % (11.5-14.5)
[2018-12-05] MEDS: Sucralfate 1 GM TABLET PO SCH ×4 (05:49→20:05)
[2018-12-05 06:04] LABS: Alanine Aminotransferase 11 Units/L (7-52); Albumin 3.1 g/dL (3.5-5.7); Albumin/Globulin Ratio 0.9 (1.1-2.2); Alkaline Phosphatase 57 Units/L (34-104); Aspartate Amino Transferase 13 Units/L (13-39); BUN/Creatinine Ratio 12 (6-26); Bilirubin,Total 0.6 mg/dL (0.3-1.0); Blood Urea Nitrogen 13 mg/dL (8-23); Calcium 9.9 mg/dL (8.6-10.3); Carbon Dioxide 41 mEq/L (23-29); Chloride 98 mEq/L (98-107); Globulin 3.4 g/dL (2.4-3.5); Glucose 132 mg/dL (70-105); Magnesium 1.4 mg/dL (1.6-2.6); Osmolality,Calculated 290 (280-300); Phosphorous 2.2 mg/dL (2.7-4.5); Potassium 5.1 mEq/L (3.5-5.1); Sodium 139 mEq/L (136-145); Total Protein 6.5 g/dL (6.4-8.9); eGFR For African Americans > 60 (> 60); eGFR For Non-African Americans > 60 (> 60)
[2018-12-05 06:38] LABS: Thyroid Stimulating Hormone 1.335 mcIU/mL (0.340-5.600)
[2018-12-05] MEDS: Aspirin Enteric Coated 81 MG Tablet PO SCH (09:06)
[2018-12-05] MEDS: Bumetanide 1 MG TABLET PO SCH (09:06)
[2018-12-05] MEDS: Triamcinolone Acet 0.1% CRM 15 GM TUBE TP SCH ×2 (09:06→20:06)
[2018-12-05] MEDS: Magnesium Oxide 400 MG TABLET PO SCH ×2 (09:06→20:05)
[2018-12-05] MEDS: Lisinopril 20 MG TABLET PO SCH (09:06)
[2018-12-05] MEDS: Multivit/Ca/Min/Fe/FA 1 TAB TABLET PO SCH (09:07)
[2018-12-05 09:30] LABS: Folate 17.8 ng/mL (3.0-16.0)
--- NOTE | 2018-12-05 18:31 | Internal Med Progress Note ---
Date of Encounter: 12/05/18 Time of Encounter: 18:20 - Assessment and plan (1) Peripheral edema Current Visit: No Status: Acute Assessment and plan: December 03. Bumex will be changed to 1 mg p.o. daily. December 05. Trial reduce Bumex to 0.5 mg daily. (2) CKD (chronic kidney disease) stage 3, GFR 30-59 ml/min Current Visit: No Status: Chronic Assessment and plan: December 03. Monitor renal indices. December 05. Creatinine stable at 1.07. Continue to monitor. (3) Hypomagnesemia Current Visit: No Status: Acute Assessment and plan: December 03. Continue magnesium oxide and monitor labs. December 05. Magnesium level unchanged at 1.4. Decrease Bumex to 0.5 mg daily and continue present dose magnesium oxide. (4) Hypertension Current Visit: No Status: Chronic Assessment and plan: December 03. Blood pressure stable. Continue lisinopril and Bumex. Qualifiers: Hypertension type: essential hypertension Qualified Code(s): I10 - Essential (primary) hypertension (5) Hypercalcemia Current Visit: No Status: Chronic Assessment and plan: December 03. Likely primary hyperparathyroidism. Monitor calcium level. (6) Hypophosphatemia Current Visit: No Status: Acute Assessment and plan: December 03. Continue Neutra-Phos and monitor labs. December 05. Phosphorus level improved to 2.2 Continue Neutra-Phos. (7) Weakness Current Visit: Yes Status: Acute Assessment and plan: December 03. Continue PT/OT intervention. (8) BPH (benign prostatic hyperplasia) Current Visit: No Status: Chronic Assessment and plan: December 03. Continue Flomax. Qualifiers: Lower urinary tract symptom presence: symptoms present Lower urinary tract symptom detail: urinary hesitancy Qualified Code(s): N40.1 - Benign prostatic hyperplasia with lower urinary tract symptoms; R39.11 - Hesitancy of micturition - Subjective Interval history: December 03. He was hospitalized [facility] acute-care November 27 after presenting with worsened edema and elevated blood pressure. He was started on IV Bumex with good diuresis and decreased edema. Blood pressure improved with medication adjustment. Hypercalcemia workup showed probable primary hyperparathyroidism. PT and OT evaluations were done and it was felt he would benefit from additional therapy in swing bed. He has no new complaints today. December 05. He has no new complaints. - Constitutional Vitals: Temp Pulse Resp BP Pulse Ox 98.4 F 62 20 167/72 97 12/05/18 07:08 12/05/18 07:08 12/05/18 07:08 12/05/18 07:08 12/05/18 07:08 Exam: He is resting comfortably in bed and appears in no acute distress. His affect is bright and cheerful. He has 0-trace edema of his lower legs bilaterally. I reviewed his medications and lab results Internal Medicine: Result - Labs CBC & Chem 7: 12/05/18 04:52 12/05/18 04:52 Labs: Short CBC 12/05/18 Range/Units 04:52 WBC 6.0 (4.3-11.1) K/mcL Hgb 13.6 (12.9-16.9) g/dL Hct 42.1 (37.5-50.1) % Plt Count 184 (140-400) K/mcL Neutrophils # 4.2 (1.6-8.9) K/mcL BMP 12/05/18 04:52 Sodium 139 Potassium 5.1 Chloride 98 Carbon Dioxide 41 H* BUN 13 Creatinine 1.07 Glucose 132 H Calcium 9.9 Liver Function 12/05/18 Range/Units 04:52 Total Bilirubin 0.6 (0.3-1.0) mg/dL AST 13 (13-39) Units/L ALT 11 (7-52) Units/L Alkaline Phosphatase 57 (34-104) Units/L Albumin 3.1 L (3.5-5.7) g/dL Consult Discharge Plan - Plan Referrals: Brien Morel MD [Primary Care Provider] - 1 week
[2018-12-06] MEDS: Sucralfate 1 GM TABLET PO SCH ×4 (06:02→21:11)
[2018-12-06] MEDS: Lisinopril 20 MG TABLET PO SCH (08:42)
[2018-12-06] MEDS: Magnesium Oxide 400 MG TABLET PO SCH ×2 (08:42→21:11)
[2018-12-06] MEDS: Triamcinolone Acet 0.1% CRM 15 GM TUBE TP SCH ×2 (08:42→21:12)
[2018-12-06] MEDS: Aspirin Enteric Coated 81 MG Tablet PO SCH (08:42)
[2018-12-06] MEDS: Bumetanide 1 MG TABLET PO SCH (08:43)
[2018-12-06] MEDS: Multivit/Ca/Min/Fe/FA 1 TAB TABLET PO SCH (08:43)
[2018-12-06] MEDS: Acetaminophen 325 MG TABLET PO PRN (08:43)
[2018-12-07] MEDS: Sucralfate 1 GM TABLET PO SCH ×4 (06:26→20:16)
[2018-12-07] MEDS: Acetaminophen 325 MG TABLET PO PRN (10:23)
[2018-12-07] MEDS: Magnesium Oxide 400 MG TABLET PO SCH ×2 (10:24→20:16)
[2018-12-07] MEDS: Bumetanide 1 MG TABLET PO SCH (10:24)
[2018-12-07] MEDS: Aspirin Enteric Coated 81 MG Tablet PO SCH (10:24)
[2018-12-07] MEDS: Multivit/Ca/Min/Fe/FA 1 TAB TABLET PO SCH (10:24)
[2018-12-07] MEDS: Lisinopril 20 MG TABLET PO SCH (10:25)
[2018-12-07] MEDS: Triamcinolone Acet 0.1% CRM 15 GM TUBE TP SCH ×2 (10:33→20:19)
[2018-12-08] MEDS: Sucralfate 1 GM TABLET PO SCH ×4 (05:42→20:33)
[2018-12-08] MEDS: Acetaminophen 325 MG TABLET PO PRN ×2 (08:19→17:18)
[2018-12-08] MEDS: Magnesium Oxide 400 MG TABLET PO SCH ×2 (08:20→20:33)
[2018-12-08] MEDS: Bumetanide 1 MG TABLET PO SCH (08:20)
[2018-12-08] MEDS: Aspirin Enteric Coated 81 MG Tablet PO SCH (08:20)
[2018-12-08] MEDS: Triamcinolone Acet 0.1% CRM 15 GM TUBE TP SCH ×2 (08:21→20:33)
[2018-12-08] MEDS: Lisinopril 20 MG TABLET PO SCH (08:21)
[2018-12-08] MEDS: Multivit/Ca/Min/Fe/FA 1 TAB TABLET PO SCH (08:21)
--- NOTE | 2018-12-08 10:21 | Internal Med Progress Note ---
Date of Encounter: 12/08/18 Time of Encounter: 10:14 - Assessment and plan (1) Peripheral edema Current Visit: No Status: Acute Assessment and plan: December 03. Bumex will be changed to 1 mg p.o. daily. December 05. Trial reduce Bumex to 0.5 mg daily. December 08. Continue Bumex 0.5 mg daily. Check labs in a.m. (2) CKD (chronic kidney disease) stage 3, GFR 30-59 ml/min Current Visit: No Status: Chronic Assessment and plan: December 03. Monitor renal indices. December 05. Creatinine stable at 1.07. Continue to monitor. (3) Hypomagnesemia Current Visit: No Status: Acute Assessment and plan: December 03. Continue magnesium oxide and monitor labs. December 05. Magnesium level unchanged at 1.4. Decrease Bumex to 0.5 mg daily and continue present dose magnesium oxide. December 08. Recheck labs in a.m. (4) Hypertension Current Visit: No Status: Chronic Assessment and plan: December 03. Blood pressure stable. Continue lisinopril and Bumex. Qualifiers: Hypertension type: essential hypertension Qualified Code(s): I10 - Essential (primary) hypertension (5) Hypercalcemia Current Visit: No Status: Chronic Assessment and plan: December 03. Likely primary hyperparathyroidism. Monitor calcium level. December 08. Check labs in a.m. (6) Hypophosphatemia Current Visit: No Status: Acute Assessment and plan: December 03. Continue Neutra-Phos and monitor labs. December 05. Phosphorus level improved to 2.2 Continue Neutra-Phos. December 08. Check labs in a.m. (7) Weakness Current Visit: Yes Status: Acute Assessment and plan: December 03. Continue PT/OT intervention. (8) BPH (benign prostatic hyperplasia) Current Visit: No Status: Chronic Assessment and plan: December 03. Continue Flomax. Qualifiers: Lower urinary tract symptom presence: symptoms present Lower urinary tract symptom detail: urinary hesitancy Qualified Code(s): N40.1 - Benign prostatic hyperplasia with lower urinary tract symptoms; R39.11 - Hesitancy of micturition - Subjective Interval history: December 03. He was hospitalized [facility] acute-care November 27- after presenting with worsened edema and elevated blood pressure. He was started on IV Bumex with good diuresis and decreased edema. Blood pressure improved with medication adjustment. Hypercalcemia workup showed probable primary hyperparathyroidism. PT and OT evaluations were done and it was felt he would benefit from additional therapy in swing bed. He has no new complaints today. December 05. He has no new complaints. December 08. He has no new complaints. - Constitutional Vitals: Temp Pulse Resp BP Pulse Ox 97.9 F 77 21 154/75 100 12/08/18 06:43 12/08/18 06:43 12/08/18 06:43 12/08/18 06:43 12/08/18 06:43 Exam: He is resting comfortably in bed and appears in no acute distress. Heart is regular without murmurs or ectopics. Lungs are clear anteriorly. Extremities show 1+ edema in the dorsum of the feet and trace edema of the lower legs bilaterally. I reviewed his medications and lab results. Internal Medicine: Result - Labs CBC & Chem 7: 12/05/18 04:52 12/05/18 04:52 Consult Discharge Plan - Plan Referrals: Brien Morel MD [Primary Care Provider] - 1 week
[2018-12-09 05:26] LABS: BUN/Creatinine Ratio 14 (6-26); Blood Urea Nitrogen 17 mg/dL (8-23); Calcium 10.4 mg/dL (8.6-10.3); Carbon Dioxide 42 mEq/L (23-29); Chloride 94 mEq/L (98-107); Glucose 125 mg/dL (70-105); Magnesium 1.4 mg/dL (1.6-2.6); Osmolality,Calculated 287 (280-300); Phosphorous 2.1 mg/dL (2.7-4.5); Potassium 4.6 mEq/L (3.5-5.1); Sodium 137 mEq/L (136-145); eGFR For African Americans > 60 (> 60); eGFR For Non-African Americans 58 (> 60)
[2018-12-09] MEDS: Sucralfate 1 GM TABLET PO SCH ×4 (06:40→20:34)
[2018-12-09] MEDS: Acetaminophen 325 MG TABLET PO PRN (08:48)
[2018-12-09] MEDS: Aspirin Enteric Coated 81 MG Tablet PO SCH (08:49)
[2018-12-09] MEDS: Bumetanide 1 MG TABLET PO SCH (08:49)
[2018-12-09] MEDS: Multivit/Ca/Min/Fe/FA 1 TAB TABLET PO SCH (08:49)
[2018-12-09] MEDS: Magnesium Oxide 400 MG TABLET PO SCH ×2 (08:49→20:34)
[2018-12-09] MEDS: Lisinopril 20 MG TABLET PO SCH (08:49)
[2018-12-09] MEDS: Triamcinolone Acet 0.1% CRM 15 GM TUBE TP SCH ×2 (08:49→20:35)
[2018-12-09] MEDS ORDERED: Loratadine 10 MG TABLET PO PRN (09:44)
[2018-12-10] MEDS: Sucralfate 1 GM TABLET PO SCH ×4 (06:16→21:57)
[2018-12-10 06:35] LABS: Basophils # 0.1 K/mcL (0.0-0.2); Basophils % 1.1 %; Eosinophils # 0.5 K/mcL (0.0-0.6); Eosinophils % 9.9 %; Hematocrit 41.4 % (37.5-50.1); Hemoglobin 13.6 g/dL (12.9-16.9); Immature Granulocytes % 0.6 % (0-4); Lymphocytes # 0.9 K/mcL (0.6-4.6); Lymphocytes % 16.5 %; Mean Corpuscular HGB Conc 32.9 g/dL (31.6-35.5); Mean Corpuscular Hemoglobin 33.4 pg (28.0-33.3); Mean Corpuscular Volume 101.7 fL (83.0-100.0); Mean Platelet Volume 10.3 fL (9.4-12.4); Monocytes # 0.6 K/mcL (0.0-1.3); Monocytes % 10.3 %; Neutrophils # 3.4 K/mcL (1.6-8.9); Platelet Count 219 K/mcL (140-400); Red Blood Count 4.07 M/mcL (4.19-5.50); Red Cell Distribution Width 11.4 % (11.5-14.5); Segmented Neutrophils % 61.6 %; White Blood Count 5.5 K/mcL (4.3-11.1)
[2018-12-10 07:35] LABS: BUN/Creatinine Ratio 13 (6-26); Blood Urea Nitrogen 17 mg/dL (8-23); Calcium 10.4 mg/dL (8.6-10.3); Carbon Dioxide 45 mEq/L (23-29); Chloride 95 mEq/L (98-107); Glucose 120 mg/dL (70-105); Osmolality,Calculated 291 (280-300); Sodium 139 mEq/L (136-145); eGFR For African Americans > 60 (> 60); eGFR For Non-African Americans 53 (> 60)
[2018-12-10] MEDS: Magnesium Oxide 400 MG TABLET PO SCH ×2 (08:42→21:57)
[2018-12-10] MEDS: Bumetanide 1 MG TABLET PO SCH (08:42)
[2018-12-10] MEDS: Aspirin Enteric Coated 81 MG Tablet PO SCH (08:42)
[2018-12-10] MEDS: Lisinopril 20 MG TABLET PO SCH (08:42)
[2018-12-10] MEDS: Multivit/Ca/Min/Fe/FA 1 TAB TABLET PO SCH (08:42)
[2018-12-10] MEDS: Triamcinolone Acet 0.1% CRM 15 GM TUBE TP SCH ×2 (08:42→21:57)
[2018-12-11] MEDS: Sucralfate 1 GM TABLET PO SCH ×4 (05:58→21:25)
[2018-12-11] MEDS: Bumetanide 1 MG TABLET PO SCH (07:53)
[2018-12-11] MEDS: Aspirin Enteric Coated 81 MG Tablet PO SCH (07:54)
[2018-12-11] MEDS: Lisinopril 20 MG TABLET PO SCH (07:54)
[2018-12-11] MEDS: Magnesium Oxide 400 MG TABLET PO SCH ×2 (07:54→21:25)
[2018-12-11] MEDS: Multivit/Ca/Min/Fe/FA 1 TAB TABLET PO SCH (07:54)
[2018-12-11] MEDS: Triamcinolone Acet 0.1% CRM 15 GM TUBE TP SCH ×2 (07:54→21:25)
[2018-12-11] MEDS: Acetaminophen 325 MG TABLET PO PRN (07:58)
--- NOTE | 2018-12-11 14:57 | Internal Med Progress Note ---
Date of Encounter: 12/11/18 Time of Encounter: 14:45 - Assessment and plan (1) Peripheral edema Current Visit: No Status: Acute Assessment and plan: December 03. Bumex will be changed to 1 mg p.o. daily. December 05. Trial reduce Bumex to 0.5 mg daily. December 08. Continue Bumex 0.5 mg daily. Check labs in a.m. (2) CKD (chronic kidney disease) stage 3, GFR 30-59 ml/min Current Visit: No Status: Chronic Assessment and plan: December 03. Monitor renal indices. December 05. Creatinine stable at 1.07. Continue to monitor. December 11. Recheck labs in a.m. (3) Hypomagnesemia Current Visit: No Status: Acute Assessment and plan: December 03. Continue magnesium oxide and monitor labs. December 05. Magnesium level unchanged at 1.4. Decrease Bumex to 0.5 mg daily and continue present dose magnesium oxide. December 08. Recheck labs in a.m. (4) Hypertension Current Visit: No Status: Chronic Assessment and plan: December 03. Blood pressure stable. Continue lisinopril and Bumex. Qualifiers: Hypertension type: essential hypertension Qualified Code(s): I10 - Essential (primary) hypertension (5) Hypercalcemia Current Visit: No Status: Chronic Assessment and plan: December 03. Likely primary hyperparathyroidism. Monitor calcium level. December 08. Check labs in a.m. December 11. Calcium level 10.4 yesterday. Recheck in a.m. (6) Hypophosphatemia Current Visit: No Status: Acute Assessment and plan: December 03. Continue Neutra-Phos and monitor labs. December 05. Phosphorus level improved to 2.2 Continue Neutra-Phos. December 08. Check labs in a.m. (7) Weakness Current Visit: Yes Status: Acute Assessment and plan: December 03. Continue PT/OT intervention. (8) BPH (benign prostatic hyperplasia) Current Visit: No Status: Chronic Assessment and plan: December 03. Continue Flomax. Qualifiers: Lower urinary tract symptom presence: symptoms present Lower urinary tract symptom detail: urinary hesitancy Qualified Code(s): N40.1 - Benign prostatic hyperplasia with lower urinary tract symptoms; R39.11 - Hesitancy of micturition - Subjective Interval history: December 03. He was hospitalized [facility] acute-care November 27 after presenting with worsened edema and elevated blood pressure. He was started on IV Bumex with good diuresis and decreased edema. Blood pressure improved with medication adjustment. Hypercalcemia workup showed probable primary hyperparathyroidism. PT and OT evaluations were done and it was felt he would benefit from additional therapy in swing bed. He has no new complaints today. December 05. He has no new complaints. December 08. He has no new complaints. December 11. He has no new complaints and feels better overall. He is pleased with his progress in therapy. - Constitutional Vitals: Temp Pulse Resp BP Pulse Ox 98.2 F 59 20 129/67 96 12/11/18 06:57 12/11/18 06:57 12/11/18 06:57 12/11/18 06:57 12/11/18 06:57 Exam: He is resting comfortably in bed and appears in no acute distress. His affect is bright and cheerful. Extremities show 0 to trace edema bilaterally. I reviewed his medications and lab results. Internal Medicine: Result - Labs CBC & Chem 7: 12/10/18 06:00 12/10/18 06:00 Consult Discharge Plan - Plan Referrals: Brien Morel MD [Primary Care Provider] - 1 week
[2018-12-12] MEDS: Sucralfate 1 GM TABLET PO SCH ×4 (06:08→20:18)
[2018-12-12 07:01] LABS: Basophils % 0.7 %; Eosinophils # 0.5 K/mcL (0.0-0.6); Eosinophils % 9.8 %; Hematocrit 40.5 % (37.5-50.1); Hemoglobin 13.3 g/dL (12.9-16.9); Immature Granulocytes % 0.7 % (0-4); Lymphocytes % 18.1 %; Mean Corpuscular HGB Conc 32.8 g/dL (31.6-35.5); Mean Corpuscular Hemoglobin 33.6 pg (28.0-33.3); Mean Corpuscular Volume 102.3 fL (83.0-100.0); Mean Platelet Volume 10.7 fL (9.4-12.4); Monocytes # 0.6 K/mcL (0.0-1.3); Monocytes % 10.9 %; Neutrophils # 3.2 K/mcL (1.6-8.9); Platelet Count 212 K/mcL (140-400); Red Blood Count 3.96 M/mcL (4.19-5.50); Red Cell Distribution Width 11.4 % (11.5-14.5); Segmented Neutrophils % 59.8 %; White Blood Count 5.4 K/mcL (4.3-11.1)
[2018-12-12 07:38] LABS: Magnesium 1.6 mg/dL (1.6-2.6); Phosphorous 3.3 mg/dL (2.7-4.5)
[2018-12-12] MEDS: Multivit/Ca/Min/Fe/FA 1 TAB TABLET PO SCH (08:53)
[2018-12-12] MEDS: Magnesium Oxide 400 MG TABLET PO SCH ×2 (08:53→20:18)
[2018-12-12] MEDS: Aspirin Enteric Coated 81 MG Tablet PO SCH (08:53)
[2018-12-12] MEDS: Lisinopril 20 MG TABLET PO SCH (08:53)
[2018-12-12] MEDS: Bumetanide 1 MG TABLET PO SCH (08:53)
[2018-12-12] MEDS: Triamcinolone Acet 0.1% CRM 15 GM TUBE TP SCH ×2 (09:05→20:18)
[2018-12-13] MEDS: Sucralfate 1 GM TABLET PO SCH ×4 (06:27→19:56)
[2018-12-13] MEDS: Multivit/Ca/Min/Fe/FA 1 TAB TABLET PO SCH (09:18)
[2018-12-13] MEDS: Magnesium Oxide 400 MG TABLET PO SCH ×2 (09:19→19:53)
[2018-12-13] MEDS: Aspirin Enteric Coated 81 MG Tablet PO SCH (09:19)
[2018-12-13] MEDS: Bumetanide 1 MG TABLET PO SCH (09:19)
[2018-12-13] MEDS: Triamcinolone Acet 0.1% CRM 15 GM TUBE TP SCH ×2 (09:31→19:56)
--- NOTE | 2018-12-13 12:52 | Internal Med Progress Note ---
Date of Encounter: 12/13/18 Time of Encounter: 12:45 - Assessment and plan (1) Peripheral edema Current Visit: No Status: Acute Assessment and plan: December 03. Bumex will be changed to 1 mg p.o. daily. December 05. Trial reduce Bumex to 0.5 mg daily. December 08. Continue Bumex 0.5 mg daily. Check labs in a.m. (2) CKD (chronic kidney disease) stage 3, GFR 30-59 ml/min Current Visit: No Status: Chronic Assessment and plan: December 03. Monitor renal indices. December 05. Creatinine stable at 1.07. Continue to monitor. December 11. Recheck labs in a.m. (3) Hypomagnesemia Current Visit: No Status: Acute Assessment and plan: December 03. Continue magnesium oxide and monitor labs. December 05. Magnesium level unchanged at 1.4. Decrease Bumex to 0.5 mg daily and continue present dose magnesium oxide. December 08. Recheck labs in a.m. December 13. Magnesium level normal at 1.6 now. Continue present Rx. (4) Hypertension Current Visit: No Status: Chronic Assessment and plan: December 03. Blood pressure stable. Continue lisinopril and Bumex. December 13. Blood pressure show significant fluctuation. Change lisinopril to 10 mg at bedtime. Qualifiers: Hypertension type: essential hypertension Qualified Code(s): I10 - Essential (primary) hypertension (5) Hypercalcemia Current Visit: No Status: Chronic Assessment and plan: December 03. Likely primary hyperparathyroidism. Monitor calcium level. December 08. Check labs in a.m. December 11. Calcium level 10.4 yesterday. Recheck in a.m. (6) Hypophosphatemia Current Visit: No Status: Acute Assessment and plan: December 03. Continue Neutra-Phos and monitor labs. December 05. Phosphorus level improved to 2.2 Continue Neutra-Phos. December 08. Check labs in a.m. December 13. Phosphorus level normal at 3.3. Reduced Neutra-Phos to 1 pack twice a day. (7) Weakness Current Visit: Yes Status: Acute Assessment and plan: December 03. Continue PT/OT intervention. (8) BPH (benign prostatic hyperplasia) Current Visit: No Status: Chronic Assessment and plan: December 03. Continue Flomax. Qualifiers: Lower urinary tract symptom presence: symptoms present Lower urinary tract symptom detail: urinary hesitancy Qualified Code(s): N40.1 - Benign prostatic hyperplasia with lower urinary tract symptoms; R39.11 - Hesitancy of micturition - Subjective Interval history: December 03. He was hospitalized [facility] acute-care November 27 after presenting with worsened edema and elevated blood pressure. He was started on IV Bumex with good diuresis and decreased edema. Blood pressure improved with medication adjustment. Hypercalcemia workup showed probable primary hyperparathyroidism. PT and OT evaluations were done and it was felt he would benefit from additional therapy in swing bed. He has no new complaints today. December 05. He has no new complaints. December 08. He has no new complaints. December 11. He has no new complaints and feels better overall. He is pleased with his progress in therapy. December 13. He has no new complaints. - Constitutional Vitals: Temp Pulse Resp BP Pulse Ox 98.2 F 71 20 101/49 96 12/13/18 06:49 12/13/18 09:09 12/13/18 06:49 12/13/18 09:09 12/13/18 09:09 Exam: He is resting comfortably in a chair at bedside and appears in no acute distress. His affect is bright and cheerful. Extremities show trace pitting edema of the anterior shins and dorsum of the feet bilaterally. I reviewed his medications and lab results. Internal Medicine: Result - Labs CBC & Chem 7: 12/12/18 06:01 12/10/18 06:00 Consult Discharge Plan - Plan Referrals: Brien Morel MD [Primary Care Provider] - 1 week
[2018-12-14] MEDS: Acetaminophen 325 MG TABLET PO PRN ×2 (07:46→20:24)
[2018-12-14] MEDS: Magnesium Oxide 400 MG TABLET PO SCH ×2 (07:47→20:25)
[2018-12-14] MEDS: Multivit/Ca/Min/Fe/FA 1 TAB TABLET PO SCH (07:47)
[2018-12-14] MEDS: Aspirin Enteric Coated 81 MG Tablet PO SCH (07:47)
[2018-12-14] MEDS: Sucralfate 1 GM TABLET PO SCH ×4 (07:47→20:25)
[2018-12-14] MEDS: Bumetanide 1 MG TABLET PO SCH (07:47)
[2018-12-14] MEDS: Triamcinolone Acet 0.1% CRM 15 GM TUBE TP SCH ×2 (07:52→20:28)
[2018-12-15] MEDS: Sucralfate 1 GM TABLET PO SCH ×4 (06:05→19:43)
[2018-12-15] MEDS: Aspirin Enteric Coated 81 MG Tablet PO SCH (08:28)
[2018-12-15] MEDS: Multivit/Ca/Min/Fe/FA 1 TAB TABLET PO SCH (08:28)
[2018-12-15] MEDS: Magnesium Oxide 400 MG TABLET PO SCH ×2 (08:28→19:46)
[2018-12-15] MEDS: Bumetanide 1 MG TABLET PO SCH (08:28)
[2018-12-15] MEDS: Triamcinolone Acet 0.1% CRM 15 GM TUBE TP SCH ×2 (08:30→19:53)
[2018-12-15] MEDS: Acetaminophen 325 MG TABLET PO PRN (08:37)
--- NOTE | 2018-12-15 16:49 | Internal Med Progress Note ---
Date of Encounter: 12/15/18 Time of Encounter: 12:15 - Assessment and plan (1) Peripheral edema Current Visit: No Status: Acute Assessment and plan: December 03. Bumex will be changed to 1 mg p.o. daily. December 05. Trial reduce Bumex to 0.5 mg daily. December 08. Continue Bumex 0.5 mg daily. Check labs in a.m. (2) CKD (chronic kidney disease) stage 3, GFR 30-59 ml/min Current Visit: No Status: Chronic Assessment and plan: December 03. Monitor renal indices. December 05. Creatinine stable at 1.07. Continue to monitor. December 11. Recheck labs in a.m. December 15. Recheck labs in a.m. (3) Hypomagnesemia Current Visit: No Status: Acute Assessment and plan: December 03. Continue magnesium oxide and monitor labs. December 05. Magnesium level unchanged at 1.4. Decrease Bumex to 0.5 mg daily and continue present dose magnesium oxide. December 08. Recheck labs in a.m. December 13. Magnesium level normal at 1.6 now. Continue present Rx. December 15. Recheck labs in a.m. (4) Hypertension Current Visit: No Status: Chronic Assessment and plan: December 03. Blood pressure stable. Continue lisinopril and Bumex. December 13. Blood pressure show significant fluctuation. Change lisinopril to 10 mg at bedtime. Qualifiers: Hypertension type: essential hypertension Qualified Code(s): I10 - Essential (primary) hypertension (5) Hypercalcemia Current Visit: No Status: Chronic Assessment and plan: December 03. Likely primary hyperparathyroidism. Monitor calcium level. December 08. Check labs in a.m. December 11. Calcium level 10.4 yesterday. Recheck in a.m. December 15. Recheck labs in a.m. (6) Hypophosphatemia Current Visit: No Status: Acute Assessment and plan: December 03. Continue Neutra-Phos and monitor labs. December 05. Phosphorus level improved to 2.2 Continue Neutra-Phos. December 08. Check labs in a.m. December 6. Phosphorus level normal at 3.3. Reduced Neutra-Phos to 1 pack twice a day. December 15. Recheck labs in a.m. (7) Weakness Current Visit: Yes Status: Acute Assessment and plan: December 03. Continue PT/OT intervention. (8) BPH (benign prostatic hyperplasia) Current Visit: No Status: Chronic Assessment and plan: December 03. Continue Flomax. Qualifiers: Lower urinary tract symptom presence: symptoms present Lower urinary tract symptom detail: urinary hesitancy Qualified Code(s): N40.1 - Benign prostatic hyperplasia with lower urinary tract symptoms; R39.11 - Hesitancy of micturition - Subjective Interval history: December 03. He was hospitalized [facility] acute-care November 27 after presenting with worsened edema and elevated blood pressure. He was started on IV Bumex with good diuresis and decreased edema. Blood pressure improved with medication adjustment. Hypercalcemia workup showed probable primary hyperparathyroidism. PT and OT evaluations were done and it was felt he would benefit from additional therapy in swing bed. He has no new complaints today. December 05. He has no new complaints. December 08. He has no new complaints. December 11. He has no new complaints and feels better overall. He is pleased with his progress in therapy. December 13. He has no new complaints. December 15. He has no new complaints. - Constitutional Vitals: Temp Pulse Resp BP Pulse Ox 97.2 F L 65 18 152/63 94 12/15/18 08:25 12/15/18 08:25 12/15/18 08:25 12/15/18 08:25 12/15/18 08:25 Exam: He is sitting on the side of bed eating lunch and appears in no acute distress. His affect is bright and cheerful. Dorsalis pedis and lower anterior shins show trace pitting edema bilaterally. I reviewed his medications and past lab results. Internal Medicine: Result - Labs CBC & Chem 7: 12/12/18 06:01 12/10/18 06:00 Consult Discharge Plan - Plan Referrals: Brien Morel MD [Primary Care Provider] - 1 week
[2018-12-15] MEDS: Lisinopril 20 MG TABLET PO SCH (21:02)
[2018-12-16 06:19] LABS: Basophils # 0.1 K/mcL (0.0-0.2); Basophils % 0.9 %; Eosinophils # 0.6 K/mcL (0.0-0.6); Eosinophils % 7.9 %; Hematocrit 39.9 % (37.5-50.1); Hemoglobin 13.2 g/dL (12.9-16.9); Immature Granulocytes % 0.7 % (0-4); Lymphocytes # 1.1 K/mcL (0.6-4.6); Lymphocytes % 15.7 %; Mean Corpuscular HGB Conc 33.1 g/dL (31.6-35.5); Mean Corpuscular Hemoglobin 33.3 pg (28.0-33.3); Mean Corpuscular Volume 100.8 fL (83.0-100.0); Mean Platelet Volume 10.7 fL (9.4-12.4); Monocytes # 0.7 K/mcL (0.0-1.3); Neutrophils # 4.5 K/mcL (1.6-8.9); Platelet Count 208 K/mcL (140-400); Red Blood Count 3.96 M/mcL (4.19-5.50); Red Cell Distribution Width 11.5 % (11.5-14.5); Segmented Neutrophils % 64.8 %; White Blood Count 6.9 K/mcL (4.3-11.1)
[2018-12-16 06:37] LABS: Alanine Aminotransferase 15 Units/L (7-52); Albumin 3.2 g/dL (3.5-5.7); Albumin/Globulin Ratio 1.1 (1.1-2.2); Alkaline Phosphatase 59 Units/L (34-104); Aspartate Amino Transferase 16 Units/L (13-39); BUN/Creatinine Ratio 11 (6-26); Bilirubin,Total 0.4 mg/dL (0.3-1.0); Blood Urea Nitrogen 12 mg/dL (8-23); Calcium 9.7 mg/dL (8.6-10.3); Carbon Dioxide 38 mEq/L (23-29); Chloride 97 mEq/L (98-107); Glucose 125 mg/dL (70-105); Magnesium 1.5 mg/dL (1.6-2.6); Osmolality,Calculated 283 (280-300); Phosphorous 2.4 mg/dL (2.7-4.5); Potassium 4.5 mEq/L (3.5-5.1); Sodium 136 mEq/L (136-145); Total Protein 6.2 g/dL (6.4-8.9); eGFR For African Americans > 60 (> 60); eGFR For Non-African Americans > 60 (> 60)
[2018-12-16 07:00] VITALS: BP 124/70
[2018-12-16] MEDS: Sucralfate 1 GM TABLET PO SCH ×2 (07:21→10:56)
[2018-12-16] MEDS: Acetaminophen 325 MG TABLET PO PRN (07:33)
[2018-12-16] MEDS: Multivit/Ca/Min/Fe/FA 1 TAB TABLET PO SCH (08:01)
[2018-12-16] MEDS: Magnesium Oxide 400 MG TABLET PO SCH (08:01)
[2018-12-16] MEDS: Bumetanide 1 MG TABLET PO SCH (08:01)
[2018-12-16] MEDS: Aspirin Enteric Coated 81 MG Tablet PO SCH (08:01)
[2018-12-16] MEDS: Triamcinolone Acet 0.1% CRM 15 GM TUBE TP SCH (08:02)
--- NOTE | 2018-12-16 10:31 | Discharge Summary ---
Date of Encounter: 12/16/18 Time of Encounter: 10:20 - Discharge Diagnosis (1) Peripheral edema Priority: Primary Status: Acute (2) CKD (chronic kidney disease) stage 3, GFR 30-59 ml/min Priority: Secondary Status: Chronic (3) Hypomagnesemia Priority: Secondary Status: Acute (4) Hypertension Priority: Secondary Status: Chronic Qualifiers: Hypertension type: essential hypertension Qualified Code(s): I10 - Essential (primary) hypertension (5) Hypercalcemia Priority: Secondary Status: Chronic (6) Hypophosphatemia Priority: Secondary Status: Acute (7) Weakness Priority: Secondary Status: Acute (8) BPH (benign prostatic hyperplasia) Priority: Secondary Status: Chronic Qualifiers: Lower urinary tract symptom presence: symptoms present Lower urinary tract symptom detail: urinary hesitancy Qualified Code(s): N40.1 - Benign prostatic hyperplasia with lower urinary tract symptoms; R39.11 - Hesitancy of micturition Hospital course: Mr. Mendoza is a 83 year old male was hospitalized [facility] acute-care November 27- after presenting with worsened edema and elevated blood pressure. He was started on IV Bumex with good diuresis and decreased edema. Blood pressure improved with medication adjustment. Hypercalcemia workup showed probable primary hyperparathyroidism. PT and OT evaluations were done and it was felt he would benefit from additional therapy in swing bed. He continued to make progress in therapy. Arrangements were completed on December 16 for him to be discharged home. DME ordered at discharge include a bedside commode with raised toilet seat, shower chair, and Rollator walker. Supplemental magnesium will be continued for borderline hypomagnesemia. Supplemental Neutra-Phos will be given for hypophosphatemia. A 1 week supply of these medications was written at discharge. His PCP can follow-up and order additional Rx and monitor labs. Room air oximetry will be checked on 6 minute walk prior to discharge. He will follow with his PCP Dr. Morel within 1 week. Home health services will be ordered. - Time Spent with Patient Total time spent providing and/or coordinating discharge services: - Discharge Medications Prescriptions: New Phos-NaK [Neutra-Phos] 2 each PO BID #28 powd.pack Bumetanide [Bumex] 0.5 mg PO DAILY #15 tablet Continued Aspirin [Lo-Dose Aspirin EC] 81 mg PO DAILY Benazepril HCl 20 mg PO DAILY Ciclopirox Olamine [Ciclopirox] 1 appl TP BID Diclofenac Sodium [Voltaren] 1 appl TD DAILY PRN PRN Reason: Mild To Moderate Pain Fluocinonide 1 appl TP BID Lovastatin 40 mg PO HS Multivitamin [One Daily Multivitamin] 1 tab PO DAILY Pantoprazole Sodium [Protonix] 40 mg PO DAILY Sucralfate [Carafate] 1 gm PO QIDAC Tamsulosin [Flomax] 0.4 mg PO DAILY Acetaminophen [Tylenol] 650 mg PO Q6HR PRN tablet PRN Reason: Pain Patient Taking Own Medication 1 each TP BID each Patient Taking Own Medication 1 each TP DAILY PRN each PRN Reason: Mild To Moderate Pain Magnesium Oxide [Mag-Ox] 400 mg PO BID #14 tablet Discontinued Bumetanide [Bumex] 1 mg IVP DAILY vial Phos-NaK [Neutra-Phos] 1 each PO BID powd.pack Potassium Chloride 20 meq PO BID tab.er.prt Home Medications: Aspirin [Lo-Dose Aspirin EC] 81 mg PO DAILY 05/03/18 [History] Benazepril HCl 20 mg PO DAILY 05/03/18 [History] Ciclopirox Olamine [Ciclopirox] 1 appl TP BID 05/03/18 [History] Diclofenac Sodium [Voltaren] 1 appl TD DAILY PRN 05/03/18 [History] Fluocinonide 1 appl TP BID 05/03/18 [History] Lovastatin 40 mg PO HS 05/03/18 [History] Multivitamin [One Daily Multivitamin] 1 tab PO DAILY 05/03/18 [History] Pantoprazole Sodium [Protonix] 40 mg PO DAILY 05/03/18 [History] Sucralfate [Carafate] 1 gm PO QIDAC 05/03/18 [History] Tamsulosin [Flomax] 0.4 mg PO DAILY 05/03/18 [History] Acetaminophen [Tylenol] 650 mg PO Q6HR PRN tablet 12/02/18 [Rx] Patient Taking Own Medication 1 each TP BID each 12/02/18 [Rx] Patient Taking Own Medication 1 each TP DAILY PRN each 12/02/18 [Rx] Bumetanide [Bumex] 0.5 mg PO DAILY #15 tablet 12/16/18 [Rx] Magnesium Oxide [Mag-Ox] 400 mg PO BID #14 tablet 12/16/18 [Rx] Phos-NaK [Neutra-Phos] 2 each PO BID #28 powd.pack 12/16/18 [Rx] Allergies/Adverse Reactions: Allergy/AdvReac Type Severity Reaction Status Date / Time Penicillins [PCN] Allergy Hives Verified 05/03/18 16:44 Sulfa (Sulfonamide AdvReac Vomiting Verified 05/03/18 16:44 Antibiotics) Date of admission: 12/02/18 18:24 Primary care physician: Brien Morel MD Consults: 12/02/18 18:59 Consult to Occupational Therapy [CONS] Routine Comment: swing bed Reason for Consult: swing bed Does patient have active BEDREST order?: No Is patient medically & hemodynamically stable?: Yes Consult to Physical Therapy [CONS] Routine Comment: swing bed Reason for Consult: swing bed Does patient have active BEDREST order?: No Is patient medically & hemodynamically stable?: Yes Consult to Supervisor Color Making [CONS] Routine Reason for SW Consult: swing bed - Constitutional Vitals: Temp Pulse Resp BP Pulse Ox 98.3 F 59 16 124/70 96 12/16/18 07:00 12/16/18 07:00 12/16/18 07:00 12/16/18 07:00 12/16/18 07:00 - Patient Status Disposition: Home Health Service Functional capacity at discharge: uses cane/walker - Discharge Instructions Follow Up With: Brien Morel MD [Primary Care Provider] - 1 week (Sunday @ 1:00pm ) - Diet and Activity Activity: ambulate only with your walker, as per physical therapy Diet: low fat, low cholesterol, low salt diet
--- NOTE | 2018-12-16 11:03 | Physician Discharge Referral ---
Home Health/Hosp Referral Info Transfer to: Home Health Attending Provider: Tiago Provider in Charge Post Discharge: PCP Aleksandra) - Diagnosis (1) Peripheral edema Priority: Primary Status: Acute (2) CKD (chronic kidney disease) stage 3, GFR 30-59 ml/min Priority: Secondary Status: Chronic (3) Hypomagnesemia Priority: Secondary Status: Acute (4) Hypertension Priority: Secondary Status: Chronic (5) Hypercalcemia Priority: Secondary Status: Chronic (6) Hypophosphatemia Priority: Secondary Status: Acute (7) Weakness Priority: Secondary Status: Acute (8) BPH (benign prostatic hyperplasia) Priority: Secondary Status: Chronic - Respiratory Orders Smoking Cessation: Smoking cessation has been advised. For more information, call the [place] Tobacco Quit Line at 1-277-IQUF-NOW. - Diet/Nutrition Diet/Nutrition Orders: No Added Salt (JULIO) - Activity Activity Orders: Walker - Services Needed Following services are medically necessary services: Nursing, Home Health Aide, Physical Therapy, Occupational Therapy - Transfer Medications Prescriptions: Bumetanide [Bumex] 0.5 mg PO DAILY #15 tablet Magnesium Oxide [Mag-Ox] 400 mg PO BID #14 tablet Phos-NaK [Neutra-Phos] 2 each PO BID #28 powd.pack Home Medications: Aspirin [Lo-Dose Aspirin EC] 81 mg PO DAILY 05/03/18 [History] Benazepril HCl 20 mg PO DAILY 05/03/18 [History] Ciclopirox Olamine [Ciclopirox] 1 appl TP BID 05/03/18 [History] Diclofenac Sodium [Voltaren] 1 appl TD DAILY PRN 05/03/18 [History] Fluocinonide 1 appl TP BID 05/03/18 [History] Lovastatin 40 mg PO HS 05/03/18 [History] Multivitamin [One Daily Multivitamin] 1 tab PO DAILY 05/03/18 [History] Pantoprazole Sodium [Protonix] 40 mg PO DAILY 05/03/18 [History] Sucralfate [Carafate] 1 gm PO QIDAC 05/03/18 [History] Tamsulosin [Flomax] 0.4 mg PO DAILY 05/03/18 [History] Acetaminophen [Tylenol] 650 mg PO Q6HR PRN tablet 12/02/18 [Rx] Patient Taking Own Medication 1 each TP BID each 12/02/18 [Rx] Patient Taking Own Medication 1 each TP DAILY PRN each 12/02/18 [Rx] Bumetanide [Bumex] 0.5 mg PO DAILY #15 tablet 12/16/18 [Rx] Magnesium Oxide [Mag-Ox] 400 mg PO BID #14 tablet 12/16/18 [Rx] Phos-NaK [Neutra-Phos] 2 each PO BID #28 powd.pack 12/16/18 [Rx] Allergies/Adverse Reactions: Allergy/AdvReac Type Severity Reaction Status Date / Time Penicillins [PCN] Allergy Hives Verified 05/03/18 16:44 Sulfa (Sulfonamide AdvReac Vomiting Verified 05/03/18 16:44 Antibiotics) Certification: Further, I certify that my clinical findings support that this patient is homebound (i.e. absences from home require considerable and taxing effort and are for medical reasons or jehovah's witness services or infrequently or short duration when for other reasons) because: Homebound Reason: Leaving home requires considerable and taxing effort due to condition (Impaired walking ability with dyspnea on exertion.) Attestation: My signature below is to certify that this patient is under my care and that I, or nurse practitioner, or a physician's assistant professor of education working with me, has a [id number] encounter with this patient.
== END 2018-12-16 16:14 | disposition home health service (06) | DRG 946 ==
LOC: INPPIK 18:24
PROVIDERS: ADMIT Internal Medicine; ATTEND Internal Medicine

== ENCOUNTER 2019-02-04 15:24 | Inpatient (IN) ==
[2019-02-04] MEDS ORDERED: 0.9 % Sodium Chloride 1,000 ML IVC ONE (15:45)
[2019-02-04] MEDS ORDERED: 0.9 % Sodium Chloride 1,000 ML IVC SCH ×2 (15:45→17:30)
[2019-02-04 16:26] LABS: Basophils # 0.1 K/mcL (0.0-0.2); Basophils % 0.8 %; Eosinophils # 0.4 K/mcL (0.0-0.6); Eosinophils % 4.6 %; Hematocrit 45.3 % (37.5-50.1); Hemoglobin 15.4 g/dL (12.9-16.9); Immature Granulocytes % 0.4 % (0-4); Lymphocytes % 10.2 %; Mean Corpuscular Hemoglobin 32.9 pg (28.0-33.3); Mean Corpuscular Volume 96.8 fL (83.0-100.0); Mean Platelet Volume 11.1 fL (9.4-12.4); Monocytes # 0.6 K/mcL (0.0-1.3); Monocytes % 6.5 %; Neutrophils # 7.2 K/mcL (1.6-8.9); Platelet Count 171 K/mcL (140-400); Red Blood Count 4.68 M/mcL (4.19-5.50); Red Cell Distribution Width 12.6 % (11.5-14.5); Segmented Neutrophils % 77.5 %; White Blood Count 9.3 K/mcL (4.3-11.1)
[2019-02-04 16:48] LABS: Prothrombin Time 11.3 Seconds (9.4-12.1)
[2019-02-04 16:59] LABS: Troponin I < 0.03 ng/mL (< 0.04)
[2019-02-04 17:05] LABS: Alanine Aminotransferase 18 Units/L (7-52); Albumin 3.6 g/dL (3.5-5.7); Alkaline Phosphatase 70 Units/L (34-104); Aspartate Amino Transferase 20 Units/L (13-39); BUN/Creatinine Ratio 9 (6-26); Bilirubin,Direct 0.1 mg/dL (0.0-0.2); Bilirubin,Indirect 0.8 mg/dL (0.0-1.0); Bilirubin,Total 0.9 mg/dL (0.3-1.0); Blood Urea Nitrogen 16 mg/dL (8-23); Calcium 16.6 mg/dL (8.6-10.3); Carbon Dioxide 36 mEq/L (23-29); Chloride 97 mEq/L (98-107); Globulin 3.5 g/dL (2.4-3.5); Glucose 158 mg/dL (70-105); Osmolality,Calculated 292 (280-300); Sodium 139 mEq/L (136-145); Total Protein 7.1 g/dL (6.4-8.9); eGFR For African Americans 43 (> 60); eGFR For Non-African Americans 36 (> 60)
[2019-02-04] MEDS ORDERED: Calcitonin-Salmon, Synthetic 400 UNIT/2 ML VIAL IM ONE ×4 (17:24→19:50)
[2019-02-04] MEDS ORDERED: Zoledronic Acid (Zometa) 3 MG in 0.9 % Sodium Chloride 100 ML IVPB ONE ×2 (18:00→19:50)
[2019-02-04] MEDS ORDERED: MOM Conc 10 ML UD.LIQ PO PRN (19:50)
[2019-02-04] MEDS ORDERED: Acetaminophen 325 MG TABLET PO PRN (19:50)
[2019-02-04] MEDS ORDERED: Naloxone 0.4 MG/ML INJ IVP PRN (19:50)
[2019-02-04] MEDS: Sucralfate 1 GM TABLET PO SCH (20:31)
[2019-02-04] MEDS: Clotrimazole 1% CRM 15 GM TUBE TP SCH (22:02)
[2019-02-04] MEDS: FluocinoNIDE 0.05% CRM 15 GM TUBE TP SCH ×2 (22:02→23:00)
[2019-02-04] MEDS: (Diclofenac Sodium [Voltaren] 1 APPL) TP SCH (22:03)
[2019-02-04] MEDS: 0.9 % Sodium Chloride 1,000 ML IVC SCH (23:00)
[2019-02-05] MEDS: Ondansetron ODT 4 MG TAB.RAPDIS SL PRN (03:42)
[2019-02-05] MEDS: 0.9 % Sodium Chloride 1,000 ML IVC SCH ×4 (03:42→17:31)
[2019-02-05 06:50] LABS: Calcium 12.9 mg/dL (8.6-10.3); Potassium 4.2 mEq/L (3.5-5.1)
[2019-02-05] MEDS ORDERED: Calcitonin-Salmon, Synthetic 400 UNIT/2 ML VIAL IM ONE (08:00)
[2019-02-05] MEDS: Lisinopril 20 MG TABLET PO SCH (08:39)
[2019-02-05] MEDS: Bumetanide 1 MG TABLET PO SCH (08:39)
[2019-02-05] MEDS: Aspirin Enteric Coated 81 MG Tablet PO SCH (08:39)
[2019-02-05] MEDS: Sucralfate 1 GM TABLET PO SCH ×4 (08:40→20:12)
[2019-02-05] MEDS: (Diclofenac Sodium [Voltaren] 1 APPL) TP SCH ×4 (08:40→22:24)
[2019-02-05] MEDS: Clotrimazole 1% CRM 15 GM TUBE TP SCH ×2 (08:43→22:24)
[2019-02-05] MEDS: FluocinoNIDE 0.05% CRM 15 GM TUBE TP SCH ×2 (08:43→22:23)
[2019-02-05 15:39] LABS: Magnesium 0.9 mg/dL (1.6-2.6); Phosphorous 1.4 mg/dL (2.7-4.5)
[2019-02-06] MEDS: 0.9 % Sodium Chloride 1,000 ML IVC SCH ×2 (02:06→10:17)
[2019-02-06 06:46] LABS: Alanine Aminotransferase 12 Units/L (7-52); Albumin 2.9 g/dL (3.5-5.7); Albumin/Globulin Ratio 1.1 (1.1-2.2); Alkaline Phosphatase 55 Units/L (34-104); Aspartate Amino Transferase 15 Units/L (13-39); BUN/Creatinine Ratio 11 (6-26); Bilirubin,Total 0.6 mg/dL (0.3-1.0); Blood Urea Nitrogen 13 mg/dL (8-23); Calcium 10.3 mg/dL (8.6-10.3); Carbon Dioxide 32 mEq/L (23-29); Chloride 106 mEq/L (98-107); Globulin 2.7 g/dL (2.4-3.5); Glucose 105 mg/dL (70-105); Osmolality,Calculated 292 (280-300); Potassium 3.2 mEq/L (3.5-5.1); Sodium 141 mEq/L (136-145); Total Protein 5.6 g/dL (6.4-8.9); eGFR For African Americans > 60 (> 60); eGFR For Non-African Americans 58 (> 60)
[2019-02-06] MEDS: Lisinopril 20 MG TABLET PO SCH (08:56)
[2019-02-06] MEDS: Aspirin Enteric Coated 81 MG Tablet PO SCH (08:56)
[2019-02-06] MEDS: Sucralfate 1 GM TABLET PO SCH ×4 (08:56→22:13)
[2019-02-06] MEDS: Bumetanide 1 MG TABLET PO SCH (08:56)
[2019-02-06] MEDS: FluocinoNIDE 0.05% CRM 15 GM TUBE TP SCH ×2 (08:58→22:20)
[2019-02-06] MEDS: (Diclofenac Sodium [Voltaren] 1 APPL) TP SCH ×4 (08:59→22:14)
[2019-02-06] MEDS: Clotrimazole 1% CRM 15 GM TUBE TP SCH ×2 (08:59→22:17)
[2019-02-06] MEDS: 0.9 % Sodium Chloride w KCl 20 MEQ/1,000 ML MLS IVC SCH (14:51)
[2019-02-06] MEDS: Ondansetron ODT 4 MG TAB.RAPDIS SL PRN (15:12)
[2019-02-07] MEDS: 0.9 % Sodium Chloride w KCl 20 MEQ/1,000 ML MLS IVC SCH ×3 (02:03→13:41)
[2019-02-07] MEDS: Sucralfate 1 GM TABLET PO SCH ×4 (05:49→20:22)
[2019-02-07 06:36] LABS: Alanine Aminotransferase 12 Units/L (7-52); Albumin 2.8 g/dL (3.5-5.7); Albumin/Globulin Ratio 1.1 (1.1-2.2); Alkaline Phosphatase 53 Units/L (34-104); Aspartate Amino Transferase 14 Units/L (13-39); BUN/Creatinine Ratio 10 (6-26); Bilirubin,Total 0.6 mg/dL (0.3-1.0); Blood Urea Nitrogen 12 mg/dL (8-23); Calcium 8.8 mg/dL (8.6-10.3); Carbon Dioxide 29 mEq/L (23-29); Chloride 108 mEq/L (98-107); Globulin 2.6 g/dL (2.4-3.5); Glucose 100 mg/dL (70-105); Osmolality,Calculated 290 (280-300); Sodium 140 mEq/L (136-145); Total Protein 5.4 g/dL (6.4-8.9); eGFR For African Americans > 60 (> 60); eGFR For Non-African Americans 60 (> 60)
[2019-02-07 07:02] LABS: Magnesium 1.2 mg/dL (1.6-2.6); Phosphorous < 1.0 mg/dL (2.7-4.5)
[2019-02-07] MEDS: Aspirin Enteric Coated 81 MG Tablet PO SCH (07:51)
[2019-02-07] MEDS: Lisinopril 20 MG TABLET PO SCH (07:52)
[2019-02-07] MEDS: (Diclofenac Sodium [Voltaren] 1 APPL) TP SCH ×4 (07:52→20:23)
[2019-02-07] MEDS: FluocinoNIDE 0.05% CRM 15 GM TUBE TP SCH ×2 (07:52→20:23)
[2019-02-07] MEDS: Clotrimazole 1% CRM 15 GM TUBE TP SCH ×2 (07:53→20:23)
[2019-02-07] MEDS ORDERED: Potassium Phosphate 44 MEQ in 0.9 % Sodium Chloride 250 ML IVPB ONE ×2 (10:47→18:02)
[2019-02-07 16:44] LABS: Magnesium 1.5 mg/dL (1.6-2.6)
[2019-02-08] MEDS: 0.9 % Sodium Chloride w KCl 20 MEQ/1,000 ML MLS IVC SCH (05:56)
[2019-02-08 06:51] VITALS: BP 111/64
[2019-02-08 07:30] LABS: Alanine Aminotransferase 12 Units/L (7-52); Albumin 3.1 g/dL (3.5-5.7); Alkaline Phosphatase 69 Units/L (34-104); Aspartate Amino Transferase 15 Units/L (13-39); BUN/Creatinine Ratio 10 (6-26); Bilirubin,Total 0.5 mg/dL (0.3-1.0); Blood Urea Nitrogen 11 mg/dL (8-23); Calcium 7.9 mg/dL (8.6-10.3); Carbon Dioxide 26 mEq/L (23-29); Chloride 105 mEq/L (98-107); Globulin 3.1 g/dL (2.4-3.5); Glucose 91 mg/dL (70-105); Magnesium 1.5 mg/dL (1.6-2.6); Osmolality,Calculated 283 (280-300); Phosphorous 2.9 mg/dL (2.7-4.5); Potassium 4.3 mEq/L (3.5-5.1); Sodium 137 mEq/L (136-145); Total Protein 6.2 g/dL (6.4-8.9); eGFR For African Americans > 60 (> 60); eGFR For Non-African Americans > 60 (> 60)
[2019-02-08] MEDS: Sucralfate 1 GM TABLET PO SCH ×2 (09:00→11:56)
[2019-02-08] MEDS: FluocinoNIDE 0.05% CRM 15 GM TUBE TP SCH (09:00)
[2019-02-08] MEDS: Clotrimazole 1% CRM 15 GM TUBE TP SCH (09:00)
[2019-02-08] MEDS: (Diclofenac Sodium [Voltaren] 1 APPL) TP SCH ×2 (09:01→11:56)
[2019-02-08] MEDS: Lisinopril 20 MG TABLET PO SCH (09:01)
[2019-02-08] MEDS: Aspirin Enteric Coated 81 MG Tablet PO SCH (09:01)
== END 2019-02-08 15:20 | disposition home or self-care (01) | DRG 644 ==
LOC: INPPIK 15:24 → EMEROOPIK 15:24 → INPPIK 19:29
PROVIDERS: ADMIT Internal Medicine; ATTEND Internal Medicine

== ENCOUNTER 2019-02-10 15:49 | Inpatient (IN) ==
[2019-02-10] MEDS ORDERED: Acetaminophen 325 MG TABLET PO PRN (16:45)
[2019-02-10] MEDS: DICLOFENAC NA TP SCH ×2 (17:29→19:51)
[2019-02-10] MEDS: 0.9 % Sodium Chloride w KCl 20 MEQ/1,000 ML MLS IVC SCH (19:49)
[2019-02-10] MEDS: FluocinoNIDE 0.05% CRM 15 GM TUBE TP SCH (19:50)
[2019-02-10] MEDS: CICLOPIROX TP SCH (19:51)
[2019-02-10] MEDS ORDERED: Sucralfate 1 GM TABLET PO SCH (22:00)
[2019-02-11] MEDS: 0.9 % Sodium Chloride w KCl 20 MEQ/1,000 ML MLS IVC SCH ×2 (05:30→18:23)
[2019-02-11] MEDS: *HR* Enoxaparin 40 MG/0.4 ML SYRINGE SQ SCH (05:30)
[2019-02-11 06:34] LABS: Basophils % 0.5 %; Eosinophils # 0.4 K/mcL (0.0-0.6); Eosinophils % 5.4 %; Hematocrit 36.3 % (37.5-50.1); Hemoglobin 12.6 g/dL (12.9-16.9); Immature Granulocytes % 0.3 % (0-4); Lymphocytes # 0.7 K/mcL (0.6-4.6); Lymphocytes % 8.5 %; Mean Corpuscular HGB Conc 34.7 g/dL (31.6-35.5); Mean Corpuscular Hemoglobin 33.2 pg (28.0-33.3); Mean Corpuscular Volume 95.5 fL (83.0-100.0); Mean Platelet Volume 10.2 fL (9.4-12.4); Monocytes # 0.7 K/mcL (0.0-1.3); Monocytes % 8.7 %; Platelet Count 174 K/mcL (140-400); Red Cell Distribution Width 12.5 % (11.5-14.5); Segmented Neutrophils % 76.6 %; White Blood Count 7.8 K/mcL (4.3-11.1)
[2019-02-11 07:08] LABS: Alanine Aminotransferase 13 Units/L (7-52); Albumin 2.9 g/dL (3.5-5.7); Albumin/Globulin Ratio 0.9 (1.1-2.2); Alkaline Phosphatase 62 Units/L (34-104); Aspartate Amino Transferase 18 Units/L (13-39); BUN/Creatinine Ratio 12 (6-26); Bilirubin,Total 0.8 mg/dL (0.3-1.0); Blood Urea Nitrogen 14 mg/dL (8-23); Carbon Dioxide 24 mEq/L (23-29); Chloride 107 mEq/L (98-107); Globulin 3.2 g/dL (2.4-3.5); Glucose 91 mg/dL (70-105); Magnesium 1.2 mg/dL (1.6-2.6); Osmolality,Calculated 290 (280-300); Phosphorous 1.9 mg/dL (2.7-4.5); Potassium 3.9 mEq/L (3.5-5.1); Sodium 140 mEq/L (136-145); Total Protein 6.1 g/dL (6.4-8.9); Uric Acid 5.2 mg/dL (2.3-7.6); eGFR For African Americans > 60 (> 60); eGFR For Non-African Americans > 60 (> 60)
[2019-02-11] MEDS: Multivit/Ca/Min/Fe/FA 1 TAB TABLET PO SCH (08:35)
[2019-02-11] MEDS: Cholecalciferol (D-3) 1,000 UNIT (25MCG) TABLET PO SCH (08:36)
[2019-02-11] MEDS: FluocinoNIDE 0.05% CRM 15 GM TUBE TP SCH ×2 (08:36→19:54)
[2019-02-11] MEDS: Aspirin Enteric Coated 81 MG Tablet PO SCH (08:36)
[2019-02-11] MEDS: DICLOFENAC NA TP SCH ×4 (08:36→19:53)
[2019-02-11] MEDS: Vitamin E 200 UNIT (90MG) CAPSULE PO SCH (08:36)
[2019-02-11] MEDS: CICLOPIROX TP SCH ×2 (08:36→19:53)
[2019-02-11] MEDS ORDERED: Lisinopril 20 MG TABLET PO SCH (09:00)
[2019-02-11 09:10] LABS: % Iron Saturation 8 % (20-55); Iron 18 mcg/dL (65-175); Transferrin 153 mg/dL (203-362)
[2019-02-11 09:12] LABS: Estimated Average Glucose 137 mg/dl
[2019-02-11 09:27] LABS: Ferritin 171 ng/mL (20-250)
[2019-02-11] MEDS ORDERED: Potassium Phosphate 44 MEQ in 0.9 % Sodium Chloride 250 ML IVPB ONE (10:33)
[2019-02-11] MEDS ORDERED: Calcium Chloride 1,000 MG in 0.9 % Sodium Chloride 100 ML IVPB ONE (10:34)
[2019-02-11] MEDS: Acetaminophen 325 MG TABLET PO SCH ×2 (11:39→17:40)
[2019-02-11] MEDS: traZODone 50 MG TABLET PO SCH (19:52)
[2019-02-12] MEDS: Acetaminophen 325 MG TABLET PO SCH ×4 (00:59→16:55)
[2019-02-12 05:00] LABS: Basophils # 0.1 K/mcL (0.0-0.2); Basophils % 0.7 %; Eosinophils # 0.5 K/mcL (0.0-0.6); Eosinophils % 7.3 %; Hematocrit 35.2 % (37.5-50.1); Immature Granulocytes % 0.3 % (0-4); Lymphocytes # 0.8 K/mcL (0.6-4.6); Lymphocytes % 11.3 %; Mean Corpuscular HGB Conc 34.1 g/dL (31.6-35.5); Mean Corpuscular Hemoglobin 32.8 pg (28.0-33.3); Mean Corpuscular Volume 96.2 fL (83.0-100.0); Mean Platelet Volume 10.5 fL (9.4-12.4); Monocytes # 0.7 K/mcL (0.0-1.3); Monocytes % 9.5 %; Neutrophils # 5.2 K/mcL (1.6-8.9); Platelet Count 198 K/mcL (140-400); Red Blood Count 3.66 M/mcL (4.19-5.50); Red Cell Distribution Width 12.4 % (11.5-14.5); Segmented Neutrophils % 70.9 %; White Blood Count 7.4 K/mcL (4.3-11.1)
[2019-02-12 05:21] LABS: Alanine Aminotransferase 10 Units/L (7-52); Albumin 2.8 g/dL (3.5-5.7); Albumin/Globulin Ratio 0.8 (1.1-2.2); Alkaline Phosphatase 59 Units/L (34-104); Aspartate Amino Transferase 15 Units/L (13-39); BUN/Creatinine Ratio 11 (6-26); Bilirubin,Total 0.8 mg/dL (0.3-1.0); Blood Urea Nitrogen 11 mg/dL (8-23); Calcium 7.3 mg/dL (8.6-10.3); Carbon Dioxide 23 mEq/L (23-29); Chloride 109 mEq/L (98-107); Globulin 3.3 g/dL (2.4-3.5); Glucose 92 mg/dL (70-105); Magnesium 1.3 mg/dL (1.6-2.6); Osmolality,Calculated 285 (280-300); Phosphorous 2.4 mg/dL (2.7-4.5); Potassium 4.5 mEq/L (3.5-5.1); Sodium 138 mEq/L (136-145); Total Protein 6.1 g/dL (6.4-8.9); eGFR For African Americans > 60 (> 60); eGFR For Non-African Americans > 60 (> 60)
[2019-02-12] MEDS: Ascorbic Acid 500 MG TABLET PO SCH (06:01)
[2019-02-12] MEDS: *HR* Enoxaparin 40 MG/0.4 ML SYRINGE SQ SCH (06:02)
[2019-02-12] MEDS: 0.9 % Sodium Chloride w KCl 20 MEQ/1,000 ML MLS IVC SCH (08:42)
[2019-02-12] MEDS: Aspirin Enteric Coated 81 MG Tablet PO SCH (09:03)
[2019-02-12] MEDS: Vitamin E 200 UNIT (90MG) CAPSULE PO SCH (09:03)
[2019-02-12] MEDS: Cholecalciferol (D-3) 1,000 UNIT (25MCG) TABLET PO SCH (09:03)
[2019-02-12] MEDS: DICLOFENAC NA TP SCH ×4 (09:04→20:46)
[2019-02-12] MEDS: Multivit/Ca/Min/Fe/FA 1 TAB TABLET PO SCH (09:04)
[2019-02-12] MEDS: FluocinoNIDE 0.05% CRM 15 GM TUBE TP SCH ×2 (09:04→20:49)
[2019-02-12] MEDS: CICLOPIROX TP SCH ×2 (09:04→20:46)
[2019-02-12] MEDS: Magnesium Oxide 400 MG TABLET PO SCH ×2 (13:14→20:45)
[2019-02-12] MEDS: traZODone 50 MG TABLET PO SCH (20:45)
[2019-02-13] MEDS: Acetaminophen 325 MG TABLET PO SCH ×3 (00:16→11:53)
[2019-02-13] MEDS: *HR* Enoxaparin 40 MG/0.4 ML SYRINGE SQ SCH (05:52)
[2019-02-13] MEDS: Ascorbic Acid 500 MG TABLET PO SCH (05:52)
[2019-02-13 07:02] LABS: Alanine Aminotransferase 11 Units/L (7-52); Albumin 2.8 g/dL (3.5-5.7); Albumin/Globulin Ratio 0.8 (1.1-2.2); Alkaline Phosphatase 60 Units/L (34-104); Aspartate Amino Transferase 13 Units/L (13-39); BUN/Creatinine Ratio 11 (6-26); Bilirubin,Total 0.6 mg/dL (0.3-1.0); Blood Urea Nitrogen 10 mg/dL (8-23); Calcium 8.1 mg/dL (8.6-10.3); Carbon Dioxide 25 mEq/L (23-29); Chloride 108 mEq/L (98-107); Globulin 3.4 g/dL (2.4-3.5); Glucose 101 mg/dL (70-105); Magnesium 1.4 mg/dL (1.6-2.6); Osmolality,Calculated 285 (280-300); Phosphorous 2.5 mg/dL (2.7-4.5); Potassium 4.5 mEq/L (3.5-5.1); Sodium 138 mEq/L (136-145); Total Protein 6.2 g/dL (6.4-8.9); eGFR For African Americans > 60 (> 60); eGFR For Non-African Americans > 60 (> 60)
[2019-02-13] MEDS: Aspirin Enteric Coated 81 MG Tablet PO SCH (08:22)
[2019-02-13] MEDS: Magnesium Oxide 400 MG TABLET PO SCH (08:22)
[2019-02-13] MEDS: Vitamin E 200 UNIT (90MG) CAPSULE PO SCH (08:22)
[2019-02-13] MEDS: Multivit/Ca/Min/Fe/FA 1 TAB TABLET PO SCH (08:22)
[2019-02-13] MEDS: DICLOFENAC NA TP SCH ×3 (08:23→15:04)
[2019-02-13] MEDS: CICLOPIROX TP SCH (08:23)
[2019-02-13] MEDS: FluocinoNIDE 0.05% CRM 15 GM TUBE TP SCH (08:23)
[2019-02-13] MEDS ORDERED: Cholecalciferol (D-3) 1,000 UNIT (25MCG) TABLET PO SCH (09:00)
[2019-02-13 14:46] VITALS: BP 137/63
== END 2019-02-13 16:25 | disposition other institution (70) | DRG 641 ==
LOC: INPPIK 16:22
PROVIDERS: ADMIT Internal Medicine; ATTEND Internal Medicine